=== PATIENT | male | born 1980 | race Caucasian/White ===

== ENCOUNTER 2023-11-08 16:57 | Inpatient (IN) | payer BC, SELFPAY ==
[2023-11-08] VITALS (38 sets, daily range): BP systolic 123–176; BP diastolic 72–102; PULSE 86–114; RESP 16–33; TEMP 36.8–37.3; O2SAT 87–99; BMI 42.2; BMI 43.3
--- NOTE | 2023-11-08 17:05 | ECG_ITS ---
The [facility] Test Date: 2023-11-08 Pat Name: Steffen Zelaya Department: Room: - Gender: Male E Learning Developer: : 1980 Requested By: MARYSOL RONQUILLO Order Number: [id number] Reading MD: BALJIT PENA Measurements Intervals [place] Rate: 101 P: 55 W[place]: 174 QRS: 45 QRSD: 100 T: 30 QT: 342 QTc: 400 Interpretive Statements 1120 Sinus tachycardia 9140 abnormal rhythm ECG No previous ECG available for comparison Electronically Signed On 11-09-2023 6:48:54 EST by BALJIT PENA
--- NOTE | 2023-11-08 17:12 | ED_ITS ---
Documented by User: MARIO Roberts 11/08/23 21:59 HPI - Nausea/Vomiting/Diarrhea General Chief complaint: Nausea/Vomiting/Diarrhea Stated complaint: Abdominal Pain Time Seen by Provider: 11/08/23 16:58 Source: patient Mode of arrival: walk-in Limitations: no limitations History of Present Illness HPI Narrative: Patient is a 43-year-old male who presents to the emergency department for the evaluation of epigastric pain that began this morning. He states he took Pepto- Bismol and antacids prior to arrival without improvement. He denies fevers, chills. He reports 2 episodes of emesis and minimal diarrhea. No urinary symptoms. No previous abdominal surgeries. He denies any history of the symptoms previously. He denies any flank or back pain. Related Data Home Medications Medication Instructions Recorded Confirmed amlodipine 10 mg tablet 10 mg PO DAILY 11/08/23 11/08/23 lisinopril 20 1 tab PO DAILY 11/08/23 11/08/23 mg-hydrochlorothiazide 12.5 mg tablet Allergies Allergy/AdvReac Type Severity Reaction Status Date / Time latex Allergy Intermediate Swelling Verified 11/08/23 17:04 of Lip/Tongue/Throat Penicillins Allergy Intermediate Verified 11/08/23 17:04 Review of Systems ROS Constitutional Denies: fever or chills Ears, nose, mouth, and throat Denies: throat pain or nasal congestion Cardiovascular Denies: chest pain Respiratory Denies: shortness of breath or cough Gastrointestinal Reports: abdominal pain, nausea, vomiting and diarrhea Genitourinary Denies: painful urination Musculoskeletal Denies: back pain or neck pain Integumentary/Breast Denies: rash Neurological Denies: headache [facility] Medical History (Updated 11/09/23 @ 01:29 by Katerine Bhat, FORREST) Sleep apnea treated with continuous positive airway pressure (CPAP) ?G47.30 - Sleep apnea, unspecified (ICD-10) Hydronephrosis ?N13.30 - Unspecified hydronephrosis (ICD-10) Hypertension ?I10 - Essential (primary) hypertension (ICD-10) Surgical History (Updated 11/08/23 @ 22:56 by Katerine Bhat RN) [place] teeth extracted ?K08.409 - Partial loss of teeth, unspecified cause, unspecified class (ICD- 10) H/O bursectomy ?Z98.890 - Other specified postprocedural states (ICD-10) Family History (Updated 11/08/23 @ 22:56 by Katerine Bhat, RN) Other Family history of cancer Family history of diabetes mellitus Family history of hypertension Social History (Updated 11/08/23 @ 22:58 by Katerine Bhat, RN) Within the past year, how often did you have a drink containing alcohol: 2-3 times a week Within the past year, how many standard drinks containing alcohol did you have on a typical day: 7 to 9 Within the past year, how often did you have six or more drinks on one occasion: weekly Total score: 9 Score interpretation: A score of 4 or more indicates drinking is likely to affect patient's safety. Smoking status: Never smoker Non-prescribed substance use: denies use Highest level of school completed/degree received: Associate degree: academic program Exam Narrative Exam Narrative: Gen.: Awake, alert, in no distress Head: Normocephalic, atraumatic ENT: Moist mucous membranes Respiratory: No respiratory distress, lungs clear bilaterally Cardio: Regular rate and rhythm Gastrointestinal: Abdomen is soft, Obese and tender to palpation in the epigastrium with no guarding or rebound Extremities: Moves extremities equally, no injuries noted Psych: Normal mood and affect Neuro: No focal neuro deficit Skin: Warm, dry, intact Constitutional Vital Signs, click to edit/add: Last Vital Signs Temp 98.0 F 11/09/23 04:45 Pulse 79 11/09/23 05:59 Resp 16 11/09/23 04:45 BP 155/89 H 11/09/23 04:45 Pulse Ox 96 11/09/23 05:59 O2 Del Method Nasal Cannula 11/09/23 04:45 O2 Flow Rate 2 11/09/23 04:45 Course Vital Signs Vital signs: Vital Signs Temperature 99.1 F 11/08/23 17:00 Pulse Rate 114 H 11/08/23 17:00 Respiratory Rate 20 11/08/23 17:00 Blood Pressure 159/93 H 11/08/23 17:00 Pulse Oximetry 97 11/08/23 17:00 Oxygen Delivery Method Room Air 11/08/23 17:00 Temperature 98.0 F 11/09/23 04:45 Pulse Rate 79 11/09/23 05:59 Respiratory Rate 16 11/09/23 04:45 Blood Pressure 155/89 H 11/09/23 04:45 Pulse Oximetry 96 11/09/23 05:59 Oxygen Delivery Method Nasal Cannula 11/09/23 04:45 Oxygen Delivery Flow Rate 2 11/09/23 04:45 MDM - Nausea/Vomiting/Diarrhea MDM Narrative Medical decision making narrative: I saw and examined the patient. he has epigastric and upper abdominal pain since this morning, two episodes of vomiting. No nausea on arrival. No relief at home with antacids. His WBC 14k. US GB negative for gallstones or cholecystitis. Blood testing otherwise normal. No improvement in pain with IV Protonix and GI cocktail. I ordered IV Dilaudid and CT abd/pelvis with IV contrast. Patient signed out to Dr Jacome at 7pm shift change. MARIO Giron made aware of plan. - DO Connor Patient was medicated, ultrasound and labs are unremarkable with the exception of mild leukocytosis. Patient reexamined by attending physician and additional pain medications and CT with IV contrast were ordered by attending physician. CT was read by the radiologist showing that the patient has a moderate small bowel obstruction with 2 transition points as well as moderate left hydroureter with suspicion for a ureteral stricture at the distal left ureter. I discussed this with the patient and his family at bedside. I answered their questions. Patient then states that he has had previous surgery on his ureter is a 6-year-old with appendectomy and exploratory laparotomy performed at that time. He states that he had it checked a few years ago at this facility but did not see a urologist and previous records show that the patient only had a right upper quadrant ultrasound in 2020. He has not had any evaluation of the left ureter at this facility. I made him aware that he did not have any hydroureter on the right side because he did not have the procedure on that side. I discussed the case with Dr. Forbes for urology and she will evaluate the patient tomorrow, likely an incidental finding as he has normal creatinine and urinary function. I discussed the case with Dr. Rodríguez For general surgery who requested an abdominal x-ray to be performed in the morning, NG tube placed in the emergency department. Patient will be admitted to the hospitalist service for evaluation. Stable at time of admission. Medical Records Attestation: I reviewed the patient's medical records. Lab Data Attestation: I reviewed the patient's lab results. Labs: Lab Results 11/08/23 11/08/23 Range/Units 17:10 17:16 WBC 14.3 H (4.0-11.0) 10^3/uL RBC 5.16 (4.70-6.10) 10^6/uL Hgb 15.1 (14.0-18.0) g/dL Hct 44.7 (42.0-54.0) % MCV 86.6 (80.0-94.0) fL MCH 29.3 (25.9-34.0) pg MCHC 33.8 (29.9-35.2) g/dL RDW 11.6 (11.0-15.0) % Plt Count 339 (150-450) 10^3/uL MPV 9.3 L (9.5-13.5) fL Neut % (Auto) 86.6 H (43.0-75.0) % Lymph % (Auto) 6.0 L (20.5-60.0) % [place] % (Auto) 6.3 (1.7-12.0) % Eos % (Auto) 0.6 L (0.9-7.0) % Baso % (Auto) 0.3 (0.2-2.0) % Neut # (Auto) 12.4 H (1.4-6.5) 10^3/uL Lymph # (Auto) 0.9 L (1.2-3.8) 10^3/uL [place] # (Auto) 0.9 H (0.3-0.8) 10^3/uL Eos # (Auto) 0.1 (0.0-0.7) 10^3/uL Baso # (Auto) 0.0 (0.0-0.1) 10^3/uL Abs Immat Gran (auto) 0.03 (0.00-0.03) 10^3/uL Imm/Tot Granulo (auto) 0.2 (0.0-0.5) % Sodium 137 (136-145) mmol/L Potassium 3.7 (3.5-5.1) mmol/L Chloride 100 (98-107) mmol/L Carbon Dioxide 26.6 (21.0-32.0) mmol/L Anion Gap 14.1 BUN 15.0 (7.0-18.0) mg/dL Creatinine 0.94 (0.70-1.30) mg/dL Est GFR ( Amer) >60 (>=60) Est GFR (Non-Af Amer) >60 (>=60) BUN/Creatinine Ratio 16.0 Glucose 156 H (74-106) mg/dL Lactate 1.7 (0.4-2.0) mmol/L Calcium 8.9 (8.5-10.1) mg/dL Total Bilirubin 0.8 (0.2-1.0) mg/dL AST 27 (15-37) U/L ALT 77 H (16-63) U/L Alkaline Phosphatase 67 (46-116) U/L Troponin I High Sens 5.5 (4.0-76.1) pg/mL Total Protein 7.7 (6.4-8.2) g/dL Albumin 3.9 (3.4-5.0) g/dL Globulin 3.8 g/dL Albumin/Globulin Ratio 1.0 Lipase 26.0 (16.0-77.0) U/L Urine Color Yellow (YELLOW) Urine Clarity Clear (CLEAR) Urine pH 6.0 (5.0-9.0) Ur Specific [place] 1.020 (1.005-1.025) Urine Protein Trace (NEG/TRACE) mg/dL Urine Glucose (UA) Negative (NEGATIVE) mg/dL Urine Ketones Negative (NEGATIVE) mg/dL Urine Occult Blood Negative (NEGATIVE) Urine Nitrite Negative (NEGATIVE) Urine Bilirubin Negative (NEGATIVE) Urine Urobilinogen 0.2 (0.2-1.0) EU/dL Ur Leukocyte Esterase Negative (NEGATIVE) Imaging Data US - abdomen: Attestation: I have reviewed the pertinent imaging results. Radiologist's impression: ITS Impressions Upper Quadrant Ultrasound 11/08/23 17:34 IMPRESSION: Hepatomegaly and hepatic steatosis. Electronically authenticated by: CELESTINA ESPINO Date: 11/08/2023 18:46 Abdomen/Pelvis CT 11/08/23 19:00 IMPRESSION: 1. Multiple dilated small bowel loops with 2 possible transition points as described above. Findings are consistent with a moderate small bowel obstruction. 2. Fatty liver and hepatomegaly. 3. Moderate to severe left hydroureteronephrosis. The left ureter tapers distally and appears to insert abnormally high in the urinary bladder which may be due to previous surgery. Findings are suspicious for a distal ureteral stricture. Consider urology consultation. Electronically authenticated by: HAMILTON LÓPEZ Date: 11/08/2023 21:33 Abdomen X-Ray 11/08/23 21:46 IMPRESSION: Nasogastric tube is seen in place with its distal tip projecting over the expected location of the proximal gastric body, and side port seen at or near the expected location of the gastroesophageal junction. Advancing the nasogastric tube at least 8 cm is suggested. Electronically authenticated by: SONG SORENSEN Date: 11/08/2023 22:53 Procedure: US right upper quadrant EXAM: US right upper quadrant HISTORY: epigastric pain COMPARISON: None. TECHNIQUE: Limited ultrasound of the liver, utilizing grayscale and color Doppler imaging. FINDINGS: Right pleural space: Clear Liver: There is increased echogenicity of the liver. The liver is enlarged. Gallbladder: No gallbladder wall thickening or cholelithiasis. Intrahepatic ducts: Normal caliber. Extra hepatic duct measures up to 5 mm Peritoneal space: No ascites. Right kidney: Unremarkable IMPRESSION: Hepatomegaly and hepatic steatosis. Electronically authenticated by: CELESTINA ESPINO Date: 11/08/2023 18:46 ECG Data Attestation: I personally reviewed and interpreted this ECG as follows: (Sinus tachycardia at a rate of 101, no acute ST elevation or ectopy. EKG reviewed by attending physician) ECG interpretation date: 11/08/23 Discharge Plan Discharge Chief Complaint: Nausea/Vomiting/Diarrhea Clinical Impression: Small bowel obstruction, Nausea & vomiting, Abdominal pain, Hydroureter on left Patient Disposition: Admitted as Observation Time of Disposition Decision: 21:56 Condition: Good Discharge Date/Time: 11/08/23 22:39 Documented by User: Ralph Horvath 11/09/23 07:32 HPI - Nausea/Vomiting/Diarrhea General Chief complaint: Nausea/Vomiting/Diarrhea Stated complaint: Abdominal Pain Time Seen by Provider: 11/08/23 16:58 Related Data Home Medications Medication Instructions Recorded Confirmed amlodipine 10 mg tablet 10 mg PO DAILY 11/08/23 11/08/23 lisinopril 20 1 tab PO DAILY 11/08/23 11/08/23 mg-hydrochlorothiazide 12.5 mg tablet Allergies Allergy/AdvReac Type Severity Reaction Status Date / Time latex Allergy Intermediate Swelling Verified 11/08/23 17:04 of Lip/Tongue/Throat Penicillins Allergy Intermediate Verified 11/08/23 17:04 [facility] Medical History (Updated 11/09/23 @ 01:29 by Ktaerine Bhat, FORREST) Sleep apnea treated with continuous positive airway pressure (CPAP) ?G47.30 - Sleep apnea, unspecified (ICD-10) Hydronephrosis ?N13.30 - Unspecified hydronephrosis (ICD-10) Hypertension ?I10 - Essential (primary) hypertension (ICD-10) Surgical History (Updated 11/08/23 @ 22:56 by Katerine Bhat, FORREST) [place] teeth extracted ?K08.409 - Partial loss of teeth, unspecified cause, unspecified class (ICD- 10) H/O bursectomy ?Z98.890 - Other specified postprocedural states (ICD-10) Family History (Updated 11/08/23 @ 22:56 by Katerine Bhat, FORREST) Other Family history of cancer Family history of diabetes mellitus Family history of hypertension Social History (Updated 11/08/23 @ 22:58 by Katerine Bhat, FORREST) Within the past year, how often did you have a drink containing alcohol: 2-3 times a week Within the past year, how many standard drinks containing alcohol did you have on a typical day: 7 to 9 Within the past year, how often did you have six or more drinks on one occasion: weekly Total score: 9 Score interpretation: A score of 4 or more indicates drinking is likely to affect patient's safety. Smoking status: Never smoker Non-prescribed substance use: denies use Highest level of school completed/degree received: Associate degree: academic program Exam Constitutional Vital Signs, click to edit/add: Last Vital Signs Temp 98.0 F 11/09/23 04:45 Pulse 79 11/09/23 05:59 Resp 16 11/09/23 04:45 BP 155/89 H 11/09/23 04:45 Pulse Ox 96 11/09/23 05:59 O2 Del Method Nasal Cannula 11/09/23 04:45 O2 Flow Rate 2 11/09/23 04:45 Course Vital Signs Vital signs: Vital Signs Temperature 99.1 F 11/08/23 17:00 Pulse Rate 114 H 11/08/23 17:00 Respiratory Rate 20 11/08/23 17:00 Blood Pressure 159/93 H 11/08/23 17:00 Pulse Oximetry 97 11/08/23 17:00 Oxygen Delivery Method Room Air 11/08/23 17:00 Temperature 98.0 F 11/09/23 04:45 Pulse Rate 79 11/09/23 05:59 Respiratory Rate 16 11/09/23 04:45 Blood Pressure 155/89 H 11/09/23 04:45 Pulse Oximetry 96 11/09/23 05:59 Oxygen Delivery Method Nasal Cannula 11/09/23 04:45 Oxygen Delivery Flow Rate 2 11/09/23 04:45 MDM - Nausea/Vomiting/Diarrhea MDM Narrative Medical decision making narrative: I saw and examined the patient. he has epigastric and upper abdominal pain since this morning, two episodes of vomiting. No nausea on arrival. No relief at home with antacids. His WBC 14k. US GB negative for gallstones or cholecystitis. Blood testing otherwise normal. No improvement in pain with IV Protonix and GI cocktial. I ordered IV Dilaudid and CT abd/pelvis with IV contrast. Patient signed out to Dr Jacome at 7pm shift change. MARIO Giron made aware of plan. - DO Connor Lab Data Labs: Lab Results 11/08/23 11/08/23 Range/Units 17:10 17:16 WBC 14.3 H (4.0-11.0) 10^3/uL RBC 5.16 (4.70-6.10) 10^6/uL Hgb 15.1 (14.0-18.0) g/dL Hct 44.7 (42.0-54.0) % MCV 86.6 (80.0-94.0) fL MCH 29.3 (25.9-34.0) pg MCHC 33.8 (29.9-35.2) g/dL RDW 11.6 (11.0-15.0) % Plt Count 339 (150-450) 10^3/uL MPV 9.3 L (9.5-13.5) fL Neut % (Auto) 86.6 H (43.0-75.0) % Lymph % (Auto) 6.0 L (20.5-60.0) % [place] % (Auto) 6.3 (1.7-12.0) % Eos % (Auto) 0.6 L (0.9-7.0) % Baso % (Auto) 0.3 (0.2-2.0) % Neut # (Auto) 12.4 H (1.4-6.5) 10^3/uL Lymph # (Auto) 0.9 L (1.2-3.8) 10^3/uL [place] # (Auto) 0.9 H (0.3-0.8) 10^3/uL Eos # (Auto) 0.1 (0.0-0.7) 10^3/uL Baso # (Auto) 0.0 (0.0-0.1) 10^3/uL Abs Immat Gran (auto) 0.03 (0.00-0.03) 10^3/uL Imm/Tot Granulo (auto) 0.2 (0.0-0.5) % Sodium 137 (136-145) mmol/L Potassium 3.7 (3.5-5.1) mmol/L Chloride 100 (98-107) mmol/L Carbon Dioxide 26.6 (21.0-32.0) mmol/L Anion Gap 14.1 BUN 15.0 (7.0-18.0) mg/dL Creatinine 0.94 (0.70-1.30) mg/dL Est GFR ( Amer) >60 (>=60) Est GFR (Non-Af Amer) >60 (>=60) BUN/Creatinine Ratio 16.0 Glucose 156 H (74-106) mg/dL Lactate 1.7 (0.4-2.0) mmol/L Calcium 8.9 (8.5-10.1) mg/dL Total Bilirubin 0.8 (0.2-1.0) mg/dL AST 27 (15-37) U/L ALT 77 H (16-63) U/L Alkaline Phosphatase 67 (46-116) U/L Troponin I High Sens 5.5 (4.0-76.1) pg/mL Total Protein 7.7 (6.4-8.2) g/dL Albumin 3.9 (3.4-5.0) g/dL Globulin 3.8 g/dL Albumin/Globulin Ratio 1.0 Lipase 26.0 (16.0-77.0) U/L Urine Color Yellow (YELLOW) Urine Clarity Clear (CLEAR) Urine pH 6.0 (5.0-9.0) Ur Specific [place] 1.020 (1.005-1.025) Urine Protein Trace (NEG/TRACE) mg/dL Urine Glucose (UA) Negative (NEGATIVE) mg/dL Urine Ketones Negative (NEGATIVE) mg/dL Urine Occult Blood Negative (NEGATIVE) Urine Nitrite Negative (NEGATIVE) Urine Bilirubin Negative (NEGATIVE) Urine Urobilinogen 0.2 (0.2-1.0) EU/dL Ur Leukocyte Esterase Negative (NEGATIVE) Imaging Data US - abdomen: Radiologist's impression: ITS Impressions Upper Quadrant Ultrasound 11/08/23 17:34 IMPRESSION: Hepatomegaly and hepatic steatosis. Electronically authenticated by: CELESTINA ESPINO Date: 11/08/2023 18:46 Abdomen/Pelvis CT 11/08/23 19:00 IMPRESSION: 1. Multiple dilated small bowel loops with 2 possible transition points as described above. Findings are consistent with a moderate small bowel obstruction. 2. Fatty liver and hepatomegaly. 3. Moderate to severe left hydroureteronephrosis. The left ureter tapers distally and appears to insert abnormally high in the urinary bladder which may be due to previous surgery. Findings are suspicious for a distal ureteral stricture. Consider urology consultation. Electronically authenticated by: HAMILTON LÓPEZ Date: 11/08/2023 21:33 Abdomen X-Ray 11/08/23 21:46 IMPRESSION: Nasogastric tube is seen in place with its distal tip projecting over the expected location of the proximal gastric body, and side port seen at or near the expected location of the gastroesophageal junction. Advancing the nasogastric tube at least 8 cm is suggested. Electronically authenticated by: SONG SORENSEN Date: 11/08/2023 22:53 Discharge Plan Discharge Chief Complaint: Nausea/Vomiting/Diarrhea Clinical Impression: Small bowel obstruction, Nausea & vomiting, Abdominal pain, Hydroureter on left Patient Disposition: Admitted as Observation Time of Disposition Decision: 21:56 Condition: Good Discharge Date/Time: 11/08/23 22:39
[2023-11-08 17:29] LABS: Basophils Percent Auto 0.3 % (0.2-2.0); Eosinophils Absolute Auto 0.1 10^3/uL (0.0-0.7); Eosinophils Percent Auto 0.6 % (0.9-7.0); Hematocrit 44.7 % (42.0-54.0); Hemoglobin 15.1 g/dL (14.0-18.0); Immature Granulocytes Abs Auto 0.03 10^3/uL (0.00-0.03); Immature Granulocytes Pct Auto 0.2 % (0.0-0.5); Lymphocytes Absolute Auto 0.9 10^3/uL (1.2-3.8); Mean Corpuscular HGB Conc 33.8 g/dL (29.9-35.2); Mean Corpuscular Hemoglobin 29.3 pg (25.9-34.0); Mean Corpuscular Volume 86.6 fL (80.0-94.0); Mean Platelet Volume 9.3 fL (9.5-13.5); Monocytes Absolute Auto 0.9 10^3/uL (0.3-0.8); Monocytes Percent Auto 6.3 % (1.7-12.0); Neutrophils Absolute Auto 12.4 10^3/uL (1.4-6.5); Neutrophils Percent Auto 86.6 % (43.0-75.0); Platelet Count 339 10^3/uL (150-450); Red Blood Count 5.16 10^6/uL (4.70-6.10); Red Cell Distribution Width 11.6 % (11.0-15.0); White Blood Count 14.3 10^3/uL (4.0-11.0)
--- NOTE | 2023-11-08 17:34 | US_ITS ---
The [place] [id number] Patient Name: MALENA MENDOZA MRN: [id number] date: 1980 Sex: M Assigned Patient Location: ER Current Patient Location: ER Accession/Order Number: [id number] Exam Date: 11/08/2023 17:35 Report Date: 11/08/2023 18:46 At the request of: THIERNO HARPER Procedure: US right upper quadrant EXAM: US right upper quadrant HISTORY: epigastric pain COMPARISON: None. TECHNIQUE: Limited ultrasound of the liver, utilizing grayscale and color Doppler imaging. FINDINGS: Right pleural space: Clear Liver: There is increased echogenicity of the liver. The liver is enlarged. Gallbladder: No gallbladder wall thickening or cholelithiasis. Intrahepatic ducts: Normal caliber. Extra hepatic duct measures up to 5 mm Peritoneal space: No ascites. Right kidney: Unremarkable US/US right upper quadrant IMPRESSION: Hepatomegaly and hepatic steatosis. Electronically authenticated by: CELESTINA ESPINO Date: 11/08/2023 18:46
[2023-11-08 17:36] LABS: Bilirubin Urine NEGATIVE (NEGATIVE); Blood Urine NEGATIVE (NEGATIVE); Clarity Urine CLEAR (CLEAR); Color Urine YELLOW (YELLOW); Glucose Urine UA NEGATIVE (NEGATIVE); Ketones Urine NEGATIVE (NEGATIVE); Leukocyte Esterase Urine NEGATIVE (NEGATIVE); Nitrite Urine NEGATIVE (NEGATIVE); Protein Urine TRACE mg/dL (NEG/TRACE); Urobilinogen Urine 0.2 EU/dL (0.2-1.0)
[2023-11-08] MEDS: 0.9 % SODIUM CHLORIDE 1,000 ML 999 ML IV (17:38)
[2023-11-08] MEDS: PANTOPRAZOLE SODIUM 40 MG VIAL IV (17:38)
[2023-11-08] MEDS: ONDANSETRON PF 4 MG/2 ML VIAL IV (17:39)
[2023-11-08 17:40] LABS: Lactate/Lactic Acid 1.7 mmol/L (0.4-2.0)
[2023-11-08] MEDS: lidocaine HCL 15 ML, MAG HYDROX/ALUMINUM HYD/SIMETH 30 ML, HYOSCYAMINE SULFATE 0.25 MG PO (17:40)
[2023-11-08 17:42] LABS: Urine Microscopic Indicated NO
[2023-11-08 17:46] LABS: Alanine Aminotransferase 77 U/L (16-63); Albumin Level 3.9 g/dL (3.4-5.0); Alkaline Phosphatase 67 U/L (46-116); Anion Gap 14.1; Aspartate Amino Transferase 27 U/L (15-37); Bilirubin Total 0.8 mg/dL (0.2-1.0); Calcium 8.9 mg/dL (8.5-10.1); Carbon Dioxide 26.6 mmol/L (21.0-32.0); Chloride 100 mmol/L (98-107); Estimated GFR (African America >60 (>=60); Estimated GFR (Non-African Ame >60 (>=60); Globulin 3.8 g/dL; Glucose 156 mg/dL (74-106); Potassium 3.7 mmol/L (3.5-5.1); Sodium 137 mmol/L (136-145); Total Protein 7.7 g/dL (6.4-8.2); Troponin I High Sensitivity 5.5 pg/mL (4.0-76.1)
--- NOTE | 2023-11-08 19:00 | CT_ITS ---
The [address] [address] Patient Name: MALENA MENDOZA MRN: [id number] date: 1980 Sex: M Assigned Patient Location: ER Current Patient Location: Accession/Order Number: [id number] Exam Date: 11/08/2023 19:45 Report Date: 11/08/2023 21:33 At the request of: BEA NICHOLS Procedure: CT abdomen pelvis w con CT ABDOMEN AND PELVIS WITH CONTRAST: INDICATION: upper abdominal pain. COMPARISON: Right upper quadrant ultrasound 11/08/2023. TECHNIQUE: Helical CT images of the abdomen and pelvis were obtained after the administration of intravenous contrast. Dose reduction techniques were achieved by using automated exposure control and/or adjustment of mA and/or kV according to patient size and/or use of iterative reconstruction technique. FINDINGS: LOWER CHEST: Normal. LIVER: Mild fatty infiltration and the liver is mildly enlarged at 20 cm in length. GALLBLADDER AND BILIARY SYSTEM: Normal. SPLEEN: Normal. PANCREAS: Normal. ADRENAL GLANDS: Normal. KIDNEYS AND URETERS: Right kidney appears normal. There is moderate to severe left hydronephrosis and hydroureter. The ureter is markedly dilated distally and it tapers near the urinary bladder. The distal left ureter is not well visualized. It appears to possibly inserted in an abnormal position in the left urinary bladder anterior to the normal location of the ureterovesical junction. There are adjacent surgical clips and this may be due to previous ureterectomy. VASCULATURE: Normal. RETROPERITONEUM AND LYMPH NODES: Normal, with no lymphadenopathy. GASTROINTESTINAL TRACT/MESENTERY: There are multiple dilated loops of small bowel with air-fluid levels. Distal small bowel is underdistended. There is a transition point in the left paracentral mid abdomen on image 93 series 3 although the small bowel is also slightly dilated distal to this point. Another possible transition point is seen within the right upper quadrant on image 68. There is trace ascites. The appendix is not visualized. BLADDER: Normal. REPRODUCTIVE SYSTEM: Normal prostate. BODY WALL: There is a small fat-containing umbilical hernia. BONES: No acute abnormality. CT/CT abdomen pelvis w con IMPRESSION: 1. Multiple dilated small bowel loops with 2 possible transition points as described above. Findings are consistent with a moderate small bowel obstruction. 2. Fatty liver and hepatomegaly. 3. Moderate to severe left hydroureteronephrosis. The left ureter tapers distally and appears to insert abnormally high in the urinary bladder which may be due to previous surgery. Findings are suspicious for a distal ureteral stricture. Consider urology consultation. Electronically authenticated by: HAMILTON LÓPEZ Date: 11/08/2023 21:33
[2023-11-08] MEDS: HYDROMORPHONE HCL 1 MG/ML CARTRIDGE IV (19:27)
--- NOTE | 2023-11-08 21:46 | XR_ITS ---
The [address] [address] Patient Name: MALENA MENDOZA MRN: [id number] date: 1980 Sex: M Assigned Patient Location: ED.MAIN Current Patient Location: [place] Accession/Order Number: [id number] Exam Date: 11/08/2023 22:20 Report Date: 11/08/2023 22:53 At the request of: THIERNO HARPER Procedure: XR abdomen 1V EXAM: XR abdomen 1V HISTORY: NG tube placement COMPARISON: None. TECHNIQUE: Single portable supine view of the left upper abdomen FINDINGS: Nasogastric tube is seen in place with its distal tip projecting over the expected location of the proximal gastric body, and side port seen at or near the expected location of the gastroesophageal junction. Advancing the nasogastric tube at least 8 cm is suggested. XR/XR abdomen 1V IMPRESSION: Nasogastric tube is seen in place with its distal tip projecting over the expected location of the proximal gastric body, and side port seen at or near the expected location of the gastroesophageal junction. Advancing the nasogastric tube at least 8 cm is suggested. Electronically authenticated by: SONG SORENSEN Date: 11/08/2023 22:53
[2023-11-08] MEDS: HYDROMORPHONE HCL 0.5 MG/0.5 ML SYRINGE IV (21:48)
[2023-11-08] MEDS: 0.9 % SODIUM CHLORIDE 1,000 ML 100 ML IV (23:33)
[2023-11-08] MEDS: MORPHINE SULFATE 2 MG/ML SYRINGE IV (23:34)
[2023-11-09] VITALS (20 sets, daily range): BP systolic 150–155; BP diastolic 74–89; PULSE 70–87; RESP 12–18; TEMP 36.7–37.1; O2SAT 87–96
[2023-11-09] MEDS: MORPHINE SULFATE 2 MG/ML SYRINGE IV ×4 (02:58→14:39)
[2023-11-09 05:13] LABS: Basophils Percent Auto 0.1 % (0.2-2.0); Eosinophils Percent Auto 0.2 % (0.9-7.0); Hematocrit 41.7 % (42.0-54.0); Hemoglobin 13.9 g/dL (14.0-18.0); Immature Granulocytes Abs Auto 0.03 10^3/uL (0.00-0.03); Immature Granulocytes Pct Auto 0.3 % (0.0-0.5); Lymphocytes Absolute Auto 1.2 10^3/uL (1.2-3.8); Lymphocytes Percent Auto 12.2 % (20.5-60.0); Mean Corpuscular HGB Conc 33.3 g/dL (29.9-35.2); Mean Corpuscular Hemoglobin 29.6 pg (25.9-34.0); Mean Corpuscular Volume 88.9 fL (80.0-94.0); Mean Platelet Volume 9.2 fL (9.5-13.5); Monocytes Percent Auto 9.4 % (1.7-12.0); Neutrophils Absolute Auto 7.9 10^3/uL (1.4-6.5); Neutrophils Percent Auto 77.8 % (43.0-75.0); Platelet Count 280 10^3/uL (150-450); Red Blood Count 4.69 10^6/uL (4.70-6.10); Red Cell Distribution Width 11.8 % (11.0-15.0); White Blood Count 10.2 10^3/uL (4.0-11.0)
[2023-11-09 05:33] LABS: Anion Gap 11.9; BUN Creatinine Ratio 13.3; Calcium 8.3 mg/dL (8.5-10.1); Carbon Dioxide 28.8 mmol/L (21.0-32.0); Chloride 102 mmol/L (98-107); Estimated GFR (African America >60 (>=60); Estimated GFR (Non-African Ame >60 (>=60); Glucose 137 mg/dL (74-106); Potassium 3.7 mmol/L (3.5-5.1); Sodium 139 mmol/L (136-145)
--- NOTE | 2023-11-09 07:00 | FL_ITS ---
The [address] [address] Patient Name: MALENA MENDOZA MRN: [id number] date: 1980 Sex: M Assigned Patient Location: MS Current Patient Location: MS Accession/Order Number: [id number] Exam Date: 11/09/2023 09:30 Report Date: 11/09/2023 12:56 At the request of: YESY MONTEIRO Procedure: FL small bowel EXAMINATION: FL small bowel HISTORY: SBO COMPARISON: 11/09/2023 No broom handle dipper image was obtained. One 1, 2 and 3 hour images were obtained. TECHNIQUE: Small bowel series was performed in the usual manner. No broom handle dipper abdominal radiograph was performed. Standard level fluoroscopic mode of operation utilized. FINDINGS: 1 and 2 hour images demonstrate enteric tube in the stomach. Contrast distention of the stomach and proximal small bowel loops are observed at one and 2 hours with distention of proximal small bowel loops up to 5.7 cm. Iodinated contrast is identified in the urinary bladder and two-hour image Three-hour image demonstrates partial decompression of the stomach and proximal small bowel loops with contrast is identified in the colon.r persistent dilation of proximal small bowel loops is observed measuring up to 5.3 cm FL/FL small bowel IMPRESSION: 1 and 2 hour images demonstrate high-grade proximal small bowel obstruction Three-hour image demonstrates partial decompression of the proximal small bowel with differential dilation between the proximal and distal small bowel but passage of contrast into the distal small bowel loops and colon Electronically authenticated by: DESEAN SHANNON Date: 11/09/2023 12:56
--- NOTE | 2023-11-09 07:00 | XR_ITS ---
The [address] [address] Patient Name: MALENA MENDOZA MRN: [id number] date: 1980 Sex: M Assigned Patient Location: MS Current Patient Location: Accession/Order Number: [id number] Exam Date: 11/09/2023 06:15 Report Date: 11/09/2023 06:39 At the request of: THIERNO HARPER Procedure: XR acute abdomen series EXAM: XR acute abdomen series HISTORY: Small bowel obstruction. COMPARISON: CT abdomen pelvis, 11/08/2023. TECHNIQUE: Frontal chest x-ray with supine and upright abdominal x-rays. FINDINGS: The heart, mediastinum and pulmonary vascularity are within normal limits. The lungs and pleural spaces are clear. There is mild asymmetric elevation of the right diaphragm. High-grade small bowel obstruction is again noted with gas-filled distended small bowel loops measuring just over 6 cm in diameter in the left lower quadrant. These appear increased from yesterday's exam. There is a normal amount of gas in the colon. There is IV contrast in the dilated left renal collecting system and ureter. NG tube side-port is near the GE junction with the tip in the proximal gastric body. XR/XR acute abdomen series IMPRESSION: 1. Nonacute chest. 2. High-grade partial small bowel obstruction appears increased from yesterday's exam. No gross free air. 3. Moderate left hydroureteronephrosis, unchanged. 4. NG tube side-port below the GE junction. This should be advanced a minimum of 3 cm. Electronically authenticated by: DANIKA LUNSFORD Date: 11/09/2023 06:39
[2023-11-09] MEDS: PANTOPRAZOLE SODIUM 40 MG VIAL IV (09:05)
--- NOTE | 2023-11-09 11:02 | CM.NOTE ---
Rounds made with Dr. Azul, general surgeon to see pt today for further recommendations. No discharge today.
--- NOTE | 2023-11-09 11:31 | P.HP_ITS ---
H&P: HPI History of Present Illness Chief complaint: Abdominal Pain, Small Bowel Obstruction Narrative: 43 y Male presents with severe generalized abdominal pain, nausea and vomiting, abdominal distention for one day. He reports acute onset abdominal pain followed by bilious vomiting with some improvement but then his pain returned later in the evening for which he decided to come to Emergency Department for further evaluation. Workup in Emergency Room revealed small bowel obstruction for which an NG tube was inserted with intermittent suction for bowel decompression and symptomatic relief. He was also noted to have left-sided hydroureteronephrosis that is chronic in nature from his previous surgery for ureteral stricture When he was [age] years old. He denies any urinary symptoms including dysuria, urgency, hesitancy or polyuria. When I evaluated him, he was reporting nausea, abdominal distention and pain. His NG tube was clamped after giving him contrast for a small bowel follow- through series. Patient reports he's been passing gas overnight. He has no prior history of small bowel obstruction. 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 His last bowel movement was two days ago. Gen. surgery is on consult and will see the patient later today. Review of Systems ROS Status of ROS 10 or more systems reviewed and unremark able except as noted in history and below [facility] Medical History (Updated 11/09/23 @ 11:44 by Shaikh Latha MD) Congenital hydroureteronephrosis ?Q62.0 - Congenital hydronephrosis (ICD-10) Sleep apnea treated with continuous positive airway pressure (CPAP) ?G47.30 - Sleep apnea, unspecified (ICD-10) Hydronephrosis ?N13.30 - Unspecified hydronephrosis (ICD-10) Hypertension ?I10 - Essential (primary) hypertension (ICD-10) Surgical History [place] teeth extracted ?K08.409 - Partial loss of teeth, unspecified cause, unspecified class (ICD- 10) H/O bursectomy ?Z98.890 - Other specified postprocedural states (ICD-10) Family History Other Family history of cancer Family history of diabetes mellitus Family history of hypertension Social History Within the past year, how often did you have a drink containing alcohol: 2-3 times a week Within the past year, how many standard drinks containing alcohol did you have on a typical day: 7 to 9 Within the past year, how often did you have six or more drinks on one occasion: weekly Total score: 9 Score interpretation: A score of 4 or more indicates drinking is likely to affect patient's safety. Smoking status: Never smoker Non-prescribed substance use: denies use Highest level of school completed/degree received: Associate degree: academic program Meds Home Medications and Allergies Home Medications Medication Instructions Recorded Confirmed Type amlodipine 10 mg tablet 10 mg PO DAILY 11/08/23 11/08/23 History lisinopril 20 1 tab PO DAILY 11/08/23 11/08/23 History mg-hydrochlorothiazide 12.5 mg tablet Allergies Allergy/AdvReac Type Severity Reaction Status Date / Time latex Allergy Intermediate Swelling Verified 11/08/23 17:04 of Lip/Tongue/Throat Penicillins Allergy Intermediate Verified 11/08/23 17:04 Exam Constitutional Vital Signs, click to edit/add: Last Vital Signs Temp 98.0 F 11/09/23 04:45 Pulse 84 11/09/23 10:00 Resp 16 11/09/23 04:45 BP 155/89 H 11/09/23 04:45 Pulse Ox 92 L 11/09/23 10:00 O2 Del Method Nasal Cannula 11/09/23 04:45 O2 Flow Rate 2 11/09/23 04:45 Documenting provider has reviewed patient's vital signs: yes General appearance: cooperative and in distress mild Nutritional appearance: obese HENMT Common normals: normocephalic and head/scalp atraumatic Respiratory Common normals: normal respiratory effort, no retractions, no use of accessory muscles and clear to auscultation bilaterally GI Common normals: non-tender and no hepatosplenomegaly Inspection: abdominal distension Auscultation: hypoactive bowel sounds Palpation: firm Extremity Common normals: normal to inspection and full ROM Neuro Common normals: oriented x3, CN's II-XII intact bilaterally, moves all extremities, no focal motor deficits and no sensory deficits noted Psych Common normals: mental status grossly normal, thought process normal, cooperative, denies homicidal ideation and denies suicidal ideation Results Labs Labs: Short CBC 11/08/23 11/09/23 Range/Units 17:10 04:49 WBC 14.3 H 10.2 (4.0-11.0) 10^3/uL Hgb 15.1 13.9 L (14.0-18.0) g/dL Hct 44.7 41.7 L (42.0-54.0) % Plt Count 339 280 (150-450) 10^3/uL BMP 11/08/23 11/09/23 17:10 04:49 Sodium 137 139 Potassium 3.7 3.7 Chloride 100 102 Carbon Dioxide 26.6 28.8 BUN 15.0 12.0 Creatinine 0.94 0.90 Glucose 156 H 137 H Calcium 8.9 8.3 L Liver Function 11/08/23 Range/Units 17:10 Total Bilirubin 0.8 (0.2-1.0) mg/dL AST 27 (15-37) U/L ALT 77 H (16-63) U/L Alkaline Phosphatase 67 (46-116) U/L Albumin 3.9 (3.4-5.0) g/dL Urine 11/08/23 Range/Units 17:16 Urine Color Yellow (YELLOW) Urine Clarity Clear (CLEAR) Urine pH 6.0 (5.0-9.0) Ur Specific [place] 1.020 (1.005-1.025) Urine Protein Trace (NEG/TRACE) mg/dL Urine Glucose (UA) Negative (NEGATIVE) mg/dL Assessment and Plan Assessment and Plan (1) Small bowel obstruction: Assessment and Plan: Small bowel obstruction with a transition point. X-ray abdominal series this morning shows worsening high-grade small bowel obstruction. No free air. G-tube was clamped, follow-up x-ray is pending after oral contrast given. Gen. surgery consulted. Once follow-up x-ray is performed, we will start patient on intermittent suction. Pain is reasonably controlled. Continue with conservative care for now. Continue with IV fluids, IV Zofran as needed. Further care as per general surgery's recommendation (2) Hypertension: Assessment and Plan: Unable to take by mouth medication. Monitor BP. Slightly above goal. IV hydralazine as needed Qualifiers: Hypertension type: primary hypertension Qualified Code(s): I10 - Essential (primary) hypertension (3) Congenital hydroureteronephrosis: Assessment and Plan: Chronic, unchanged because of prior genitourinary surgery when he was a child. Urology was consulted overnight and will wait for their recommendation.
[2023-11-09] MEDS: 0.9 % SODIUM CHLORIDE 1,000 ML 100 ML IV ×2 (12:24→22:14)
--- NOTE | 2023-11-09 13:16 | PM.GSCN ---
History of Present Illness Consult details Consult date: 11/09/23 Reason for consult: other Requesting physician: Shaikh Latha Narrative: Steffen Kendall a 43-year-old male who presented to the Emergency Department yesterday afternoon with complaints of epigastric abdominal pain described as knifelike ten out of ten progressively becoming worse during the day associated with nausea and vomiting. He denies any history of hematemesis melena or hematochezia or history of ulcer disease or prior abdominal surgery. He had a CT scan of the abdomen and pelvis with IV Contrast only which demonstrated possible bowel obstruction with two separate points of obstruction.as small bowel movement yesterday 11 AM the pain was worse. He admits to drinking 6-12 beers every weekend but denies any alcohol use. He denies any family history of colon cancer or inflammatory bowel disease. He has never had this prior to this visit. His is at his bedside. 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 Since I reviewed the chart and ordered a small bowel series's morning he is feeling much better and has had a few bowel movements with very little stool. He feels as if something has moved through since noon. Review of Systems ROS Status of ROS 10 or more systems reviewed and unremarkable except as noted in history and below 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 - Congenital hydronephrosis (ICD-10) Sleep apnea treated with continuous positive airway pressure (CPAP) ?G47.30 - Sleep apnea, unspecified (ICD-10) Hydronephrosis ?N13.30 - Unspecified hydronephrosis (ICD-10) Hypertension ?I10 - Essential (primary) hypertension (ICD-10) Surgical History [place] teeth extracted ?K08.409 - Partial loss of teeth, unspecified cause, unspecified class (ICD-10) H/O bursectomy ?Z98.890 - Other specified postprocedural states (ICD-10) Family History Other Family history of cancer Family history of diabetes mellitus Family history of hypertension Social History Within the past year, how often did you have a drink containing alcohol: 2-3 times a week Within the past year, how many standard drinks containing alcohol did you have on a typical day: 7 to 9 Within the past year, how often did you have six or more drinks on one occasion: weekly Total score: 9 Score interpretation: A score of 4 or more indicates drinking is likely to affect patient's safety. Smoking status: Never smoker Non-prescribed substance use: denies use Highest level of school completed/degree received: Associate degree: academic program Meds Home Medications and Allergies Home Medications Medication Instructions Recorded Confirmed Type amlodipine 10 mg tablet 10 mg PO DAILY 11/08/23 11/08/23 History lisinopril 20 1 tab PO DAILY 11/08/23 11/08/23 History mg-hydrochlorothiazide 12.5 mg tablet Allergies Allergy/AdvReac Type Severity Reaction Status Date / Time latex Allergy Intermediate Swelling Verified 11/08/23 17:04 of Lip/Tongue/Throat Penicillins Allergy Intermediate Verified 11/08/23 17:04 Exam Constitutional Vital Signs, click to edit/add: Last Vital Signs Temp 98.0 F 11/09/23 04:45 Pulse 70 11/09/23 12:00 Resp 16 11/09/23 04:45 BP 155/89 H 11/09/23 04:45 Pulse Ox 90 L 11/09/23 11:34 O2 Del Method Room Air 11/09/23 11:34 O2 Flow Rate 2 11/09/23 04:45 Documenting provider has reviewed patient's vital signs: yes Common normals: no apparent distress, oriented x3, healthy appearing, alert and well nourished General appearance: cooperative, comfortable and well developed Nutritional appearance: overweight Orientation/consciousness: Yes awake, Yes oriented to person, Yes oriented to place and Yes oriented to time Respiratory Common normals: clear to auscultation bilaterally Cardio Common normals: regular rate, regular rhythm and no murmurs GI Common normals: Normal to inspection, nondistended, normoactive bowel sounds present, soft to palpation, non-tender and no masses Auscultation: hyperactive bowel sounds Palpation: soft Neuro Common normals: oriented x3 and CN's II-XII intact bilaterally Results Labs Labs: Abnormal lab results 11/08/23 11/09/23 Range/Units 17:10 04:49 WBC 14.3 H (4.0-11.0) 10^3/uL RBC 4.69 L (4.70-6.10) 10^6/uL Hgb 13.9 L (14.0-18.0) g/dL Hct 41.7 L (42.0-54.0) % MPV 9.3 L 9.2 L (9.5-13.5) fL Neut % (Auto) 86.6 H 77.8 H (43.0-75.0) % Lymph % (Auto) 6.0 L 12.2 L (20.5-60.0) % Eos % (Auto) 0.6 L 0.2 L (0.9-7.0) % Baso % (Auto) 0.1 L (0.2-2.0) % Neut # (Auto) 12.4 H 7.9 H (1.4-6.5) 10^3/uL Lymph # (Auto) 0.9 L (1.2-3.8) 10^3/uL Dare # (Auto) 0.9 H 1.0 H (0.3-0.8) 10^3/uL Glucose 156 H 137 H (74-106) mg/dL Calcium 8.3 L (8.5-10.1) mg/dL ALT 77 H (16-63) U/L Diabetes panel 11/08/23 11/09/23 Range/Units 17:10 04:49 Sodium 137 139 (136-145) mmol/L Potassium 3.7 3.7 (3.5-5.1) mmol/L Chloride 100 102 (98-107) mmol/L Carbon Dioxide 26.6 28.8 (21.0-32.0) mmol/L BUN 15.0 12.0 (7.0-18.0) mg/dL Creatinine 0.94 0.90 (0.70-1.30) mg/dL Glucose 156 H 137 H (74-106) mg/dL Calcium 8.9 8.3 L (8.5-10.1) mg/dL AST 27 (15-37) U/L ALT 77 H (16-63) U/L Alkaline Phosphatase 67 (46-116) U/L Total Protein 7.7 (6.4-8.2) g/dL Albumin 3.9 (3.4-5.0) g/dL Calcium panel 11/08/23 11/09/23 Range/Units 17:10 04:49 Calcium 8.9 8.3 L (8.5-10.1) mg/dL Albumin 3.9 (3.4-5.0) g/dL Pituitary panel 11/08/23 11/09/23 Range/Units 17:10 04:49 Sodium 137 139 (136-145) mmol/L Potassium 3.7 3.7 (3.5-5.1) mmol/L Chloride 100 102 (98-107) mmol/L Carbon Dioxide 26.6 28.8 (21.0-32.0) mmol/L BUN 15.0 12.0 (7.0-18.0) mg/dL Creatinine 0.94 0.90 (0.70-1.30) mg/dL Glucose 156 H 137 H (74-106) mg/dL Calcium 8.9 8.3 L (8.5-10.1) mg/dL Adrenal panel 11/08/23 11/09/23 Range/Units 17:10 04:49 Sodium 137 139 (136-145) mmol/L Potassium 3.7 3.7 (3.5-5.1) mmol/L Chloride 100 102 (98-107) mmol/L Carbon Dioxide 26.6 28.8 (21.0-32.0) mmol/L BUN 15.0 12.0 (7.0-18.0) mg/dL Creatinine 0.94 0.90 (0.70-1.30) mg/dL Glucose 156 H 137 H (74-106) mg/dL Calcium 8.9 8.3 L (8.5-10.1) mg/dL Total Bilirubin 0.8 (0.2-1.0) mg/dL AST 27 (15-37) U/L ALT 77 H (16-63) U/L Alkaline Phosphatase 67 (46-116) U/L Total Protein 7.7 (6.4-8.2) g/dL Albumin 3.9 (3.4-5.0) g/dL All other labs normal. Imaging Abdominal x-ray: report reviewed Abdomen CT scan report/results: report reviewed and image reviewed Abdominal ultrasound report/results: report reviewed Assessment and Plan Assessment and Plan (1) Small bowel obstruction: (2) Hypertension: Qualifiers: Hypertension type: primary hypertension Qualified Code(s): I10 - Essential (primary) hypertension (3) Congenital hydroureteronephrosis: (4) Obesity: Qualifiers: Obesity type: unspecified obesity type Serious obesity comorbidity presence: with serious comorbidity Body mass index: BMI 40.0-44.9 Plan Nasogastric tube was placed last evening with minimal output and this morning small bowel series was performed and after three hours the contrast had passed into the large bowel but there were still multiple loops of small bowel with air throughout. Most likely this is an ileus versus partial obstruction but no signs of complete obstruction therefore would continue to treat conservatively by clamping nasogastric tube keeping nothing by mouth and repeat abdominal x-ray tomorrow morning and as long as the contrast travels and no more nausea and vomiting we will assess tomorrow and possibly try to start clear liquids and progressed diet as tolerated. If patient should continue to have problems he may follow-up with me as outpatient in the future and we can do further workup with endoscopy or and/or CCK HIDA scan if needed although I don't believe those would be needed at this time. I would encourage the patient to lose weight since his BMI is over forty-three.
--- NOTE | 2023-11-09 14:09 | PM.CN ---
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 Nausea, emesis and minimal diarrhea noted. CT AP w contrast notes a small bowel obstruction and incidental finding of moderate to severe left hydroureteronephrosis that tapers distally, higher insertion into the bladder. Pt denies flank pain, issues or changes with urination, UTIs, or other urologic issues since his surgery. Last evaluated by Urology 10 years ago and was told both kidneys were normal size without issues. WBC, Cr wnl, UA neg for UTI. He is being treated with NGT and NPO for SBO. 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 - Congenital hydronephrosis (ICD-10) Sleep apnea treated with continuous positive airway pressure (CPAP) ?G47.30 - Sleep apnea, unspecified (ICD-10) Hydronephrosis ?N13.30 - Unspecified hydronephrosis (ICD-10) Hypertension ?I10 - Essential (primary) hypertension (ICD-10) Surgical History [place] teeth extracted ?K08.409 - Partial loss of teeth, unspecified cause, unspecified class (ICD-10) H/O bursectomy ?Z98.890 - Other specified postprocedural states (ICD-10) Family History Other Family history of cancer Family history of diabetes mellitus Family history of hypertension Social History Within the past year, how often did you have a drink containing alcohol: 2-3 times a week Within the past year, how many standard drinks containing alcohol did you have on a typical day: 7 to 9 Within the past year, how often did you have six or more drinks on one occasion: weekly Total score: 9 Score interpretation: A score of 4 or more indicates drinking is likely to affect patient's safety. Smoking status: Never smoker Non-prescribed substance use: denies use Highest level of school completed/degree received: Associate degree: academic program Meds Home Medications and Allergies Home Medications Medication Instructions Recorded Confirmed Type amlodipine 10 mg tablet 10 mg PO DAILY 11/08/23 11/08/23 History lisinopril 20 1 tab PO DAILY 11/08/23 11/08/23 History mg-hydrochlorothiazide 12.5 mg tablet Allergies Allergy/AdvReac Type Severity Reaction Status Date / Time latex Allergy Intermediate Swelling Verified 11/08/23 17:04 of Lip/Tongue/Throat Penicillins Allergy Intermediate Verified 11/08/23 17:04 Exam Narrative Exam Narrative: No acute distress, appears nontoxic NGT to IWS Nonlabored respirations, symmetric chest rise, on room air Normal rate and rhythm, no peripheral edema No CVA tenderness to palpation, no suprapubic TTP Moves all extremities, no deformities Alert and oriented x 4, no acute focal deficits Skin dry, intact Appropriate, cooperative Constitutional Vital Signs, click to edit/add: Last Vital Signs Temp 98.0 F 11/09/23 04:45 Pulse 81 11/09/23 14:00 Resp 16 11/09/23 04:45 BP 155/89 H 11/09/23 04:45 Pulse Ox 90 L 11/09/23 11:34 O2 Del Method Room Air 11/09/23 11:34 O2 Flow Rate 2 11/09/23 04:45 Results Labs Labs: Short CBC 11/08/23 11/09/23 Range/Units 17:10 04:49 WBC 14.3 H 10.2 (4.0-11.0) 10^3/uL Hgb 15.1 13.9 L (14.0-18.0) g/dL Hct 44.7 41.7 L (42.0-54.0) % Plt Count 339 280 (150-450) 10^3/uL BMP 11/08/23 11/09/23 17:10 04:49 Sodium 137 139 Potassium 3.7 3.7 Chloride 100 102 Carbon Dioxide 26.6 28.8 BUN 15.0 12.0 Creatinine 0.94 0.90 Glucose 156 H 137 H Calcium 8.9 8.3 L Liver Function 11/08/23 Range/Units 17:10 Total Bilirubin 0.8 (0.2-1.0) mg/dL AST 27 (15-37) U/L ALT 77 H (16-63) U/L Alkaline Phosphatase 67 (46-116) U/L Albumin 3.9 (3.4-5.0) g/dL Urine 11/08/23 Range/Units 17:16 Urine Color Yellow (YELLOW) Urine Clarity Clear (CLEAR) Urine pH 6.0 (5.0-9.0) Ur Specific [place] 1.020 (1.005-1.025) Urine Protein Trace (NEG/TRACE) mg/dL Urine Glucose (UA) Negative (NEGATIVE) mg/dL Imaging CT scan - abdomen: My impression: mod - severe L hydroureteronephrosis down to ureteral reimplant into superior aspect of bladder. Delayed nephrogram Radiologist's impression: CT ABDOMEN AND PELVIS WITH CONTRAST: INDICATION: upper abdominal pain. COMPARISON: Right upper quadrant ultrasound 11/08/2023. TECHNIQUE: Helical CT images of the abdomen and pelvis were obtained after the administration of intravenous contrast. Dose reduction techniques were achieved by using automated exposure control and/or adjustment of mA and/or kV according to patient size and/or use of iterative reconstruction technique. FINDINGS: LOWER CHEST: Normal. LIVER: Mild fatty infiltration and the liver is mildly enlarged at 20 cm in length. GALLBLADDER AND BILIARY SYSTEM: Normal. SPLEEN: Normal. PANCREAS: Normal. ADRENAL GLANDS: Normal. KIDNEYS AND URETERS: Right kidney appears normal. There is moderate to severe left hydronephrosis and hydroureter. The ureter is markedly dilated distally and it tapers near the urinary bladder. The distal left ureter is not well visualized. It appears to possibly inserted in an abnormal position in the left urinary bladder anterior to the normal location of the ureterovesical junction. There are adjacent surgical clips and this may be due to previous ureterectomy. VASCULATURE: Normal. RETROPERITONEUM AND LYMPH NODES: Normal, with no lymphadenopathy. GASTROINTESTINAL TRACT/MESENTERY: There are multiple dilated loops of small bowel with air-fluid levels. Distal small bowel is underdistended. There is a transition point in the left paracentral mid abdomen on image 93 series 3 although the small bowel is also slightly dilated distal to this point. Another possible transition point is seen within the right upper quadrant on image 68. There is trace ascites. The appendix is not visualized. BLADDER: Normal. REPRODUCTIVE SYSTEM: Normal prostate. BODY WALL: There is a small fat-containing umbilical hernia. BONES: No acute abnormality. CT/CT abdomen pelvis w con IMPRESSION: 1. Multiple dilated small bowel loops with 2 possible transition points as described above. Findings are consistent with a moderate small bowel obstruction. 2. Fatty liver and hepatomegaly. 3. Moderate to severe left hydroureteronephrosis. The left ureter tapers distally and appears to insert abnormally high in the urinary bladder which may be due to previous surgery. Findings are suspicious for a distal ureteral stricture. Consider urology consultation. Electronically authenticated by: HAMILTON LÓPEZ Date: 11/08/2023 21:33 Assessment and Plan Assessment and Plan (1) Hydroureteronephrosis: (2) Small bowel obstruction: Plan 43 yo male admitted with SBO was found to have moderate to severe left hydroureteronephrosis. 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 He was told things were back to normal when last evaluated 10 years ago. No imaging here to review from prior. Renal function WNL, unlikely source of pain however discussed delayed nephrogram on imaging and f/u [facility]. Discussed potential for further renal decline if this is not addressed as well as infection. Given asymptomatic, preserved renal function and here for bowel obstruction, reasonable to hold off on intervention at this time. Recommend close follow up outpatient with reconstructive urologist for NM renal scan and further evaluation to see if repeat ureteral reimplant is necessary if obstructed. Given prior surgery, reconstructive specialist/tertiary center is recommended. All questions and concerns addressed with pt and family.
[2023-11-10] VITALS (11 sets, daily range): BP systolic 133–138; BP diastolic 76–80; PULSE 62–86; RESP 18–20; TEMP 36.7–36.9; O2SAT 94–96
[2023-11-10] MEDS: BENZOCAINE/MENTHOL SORE THROAT LOZENGE 1 LOZENGE PO (02:39)
[2023-11-10 05:00] LABS: Basophils Percent Auto 0.5 % (0.2-2.0); Eosinophils Absolute Auto 0.2 10^3/uL (0.0-0.7); Eosinophils Percent Auto 2.7 % (0.9-7.0); Hematocrit 39.8 % (42.0-54.0); Hemoglobin 12.9 g/dL (14.0-18.0); Immature Granulocytes Abs Auto 0.02 10^3/uL (0.00-0.03); Immature Granulocytes Pct Auto 0.3 % (0.0-0.5); Lymphocytes Absolute Auto 1.8 10^3/uL (1.2-3.8); Lymphocytes Percent Auto 22.6 % (20.5-60.0); Mean Corpuscular HGB Conc 32.4 g/dL (29.9-35.2); Mean Corpuscular Hemoglobin 29.5 pg (25.9-34.0); Mean Corpuscular Volume 90.9 fL (80.0-94.0); Mean Platelet Volume 9.2 fL (9.5-13.5); Monocytes Absolute Auto 1.2 10^3/uL (0.3-0.8); Monocytes Percent Auto 15.1 % (1.7-12.0); Neutrophils Absolute Auto 4.6 10^3/uL (1.4-6.5); Neutrophils Percent Auto 58.8 % (43.0-75.0); Platelet Count 268 10^3/uL (150-450); Red Blood Count 4.38 10^6/uL (4.70-6.10); Red Cell Distribution Width 11.9 % (11.0-15.0); White Blood Count 7.9 10^3/uL (4.0-11.0)
[2023-11-10 05:12] LABS: Anion Gap 11.9; BUN Creatinine Ratio 15.6; Calcium 8.2 mg/dL (8.5-10.1); Carbon Dioxide 27.8 mmol/L (21.0-32.0); Chloride 108 mmol/L (98-107); Estimated GFR (African America >60 (>=60); Estimated GFR (Non-African Ame >60 (>=60); Glucose 112 mg/dL (74-106); Potassium 3.7 mmol/L (3.5-5.1); Sodium 144 mmol/L (136-145)
--- NOTE | 2023-11-10 06:00 | XR_ITS ---
The [address] [address] Patient Name: MALENA MENDOZA MRN: [id number] date: 1980 Sex: M Assigned Patient Location: [place] Current Patient Location: [place] Accession/Order Number: [id number] Exam Date: 11/10/2023 05:50 Report Date: 11/10/2023 06:31 At the request of: YESY MONTEIRO Procedure: XR abdomen 1V EXAMINATION: XR abdomen 1V HISTORY: sbo COMPARISON: 11/08/2023 FINDINGS: BOWEL GAS PATTERN: Decompression of small bowel loops with progression of contrast now opacifying the colon and rectum CALCIFICATIONS: None significant. OTHER: Enteric tube tip in the left upper quadrant likely within the gastric lumen. No abnormal gaseous collections. XR/XR abdomen 1V IMPRESSION: Decompression of small bowel obstruction with passage of contrast now within the colon and rectum Electronically authenticated by: DESEAN SHANNON Date: 11/10/2023 06:31
[2023-11-10] MEDS: 0.9 % SODIUM CHLORIDE 1,000 ML 100 ML IV (07:54)
[2023-11-10] MEDS: PANTOPRAZOLE SODIUM 40 MG VIAL IV (08:36)
[2023-11-10] MEDS: AMLODIPINE BESYLATE 5 MG TABLET 10 MG PO (11:43)
--- NOTE | 2023-11-10 12:43 | CM.NOTE ---
Rounds made with Dr. Azul, increasing pt's diet and if pt tolerates may discharge to home this afternoon. Dr. Azul will discuss plan with Dr. Rodríguez. No discharge needs identified.
--- NOTE | 2023-11-10 16:08 | PM.DS1 ---
DS: Providers Provider Date of admission: 11/08/23 22:59 Primary care physician: Gay Bueno MD Consults: 11/08/23 22:26 Consult to General Surgeon Routine Consulting Provider: Ian Rodríguez Reason for consultation: SBO Has provider been notified: Yes 11/08/23 22:32 Consult to Urology Routine Consulting Provider: Lindsay Forbes Reason for consultation: L Hydroureter, ? stricture Has provider been notified: Yes Attending physician on discharge: Shaikh Latha Discharging clinician: Shaikh Latha Anticipated date of discharge: 11/10/23 DS: Diagnosis Discharge Diagnosis (1) Small bowel obstruction: Assessment and plan: Admitted for SBO -Managed conservatively - resolved during hospital stay. Had multiple bowel movements. Contrast seen passing through the bowel and f/u XR indicating resolution of SBO. Tolerated PO diet. Denies any GI symptoms. Stable for discharge. D/w General surgery. In agreement with plan of care. (2) Hypertension: Assessment and plan: C.w home meds Qualifiers: Hypertension type: primary hypertension Qualified Code(s): I10 - Essential (primary) hypertension (3) Congenital hydroureteronephrosis: Assessment and plan: Congenital, asymptomatic. Had surgery for it as a child. Evaluated by Urology and recommended outpatient f/u DS: Summary Hospital Course Hospital Course: 43 y o male presented with nausea, vomiting, abdominal distention and pain to ED and was admitted for SBO. He was managed conservatively with IVF, pain control, anti emetics, NGT insertion. General Surgery was consulted and followed the patient throughout the hospital course. His SBO resolved without surgical intervention with following imaging studies indicating contrast passing through the bowels, and resolution of dilated bowel loops. Patient had multiple bowel movements overnight and all his symptoms had resolved when I saw him today. His diet was advanced and he tolerated food without nausea, vomiting or pain and was thus, discharged home. Patient educated on signs and symptoms of bowel obstruction and instructed to return to ED if he developed similar symptoms. Stable for discharge. F/u with PCP in one week. F/u with Urology as outpatient. Status at Discharge Functional status at discharge: independent ambulation Overall status at discharge: patient is back to baseline Time Spent with Patient Time attestation: Total time spent providing and/or coordinating discharge services: Exam Constitutional Vital Signs, click to edit/add: Last Vital Signs Temp 98.4 F 11/10/23 13:57 Pulse 72 11/10/23 14:00 Resp 20 11/10/23 13:57 BP 133/80 11/10/23 13:57 Pulse Ox 94 L 11/10/23 13:57 O2 Del Method Room Air 11/10/23 13:57 O2 Flow Rate 2 11/10/23 03:28 Documenting provider has reviewed patient's vital signs: yes General appearance: cooperative and in distress mild Nutritional appearance: obese Respiratory Common normals: normal respiratory effort, no retractions, no use of accessory muscles and clear to auscultation bilaterally GI Common normals: Normal to inspection, nondistended, normoactive bowel sounds present, soft to palpation, non-tender and no hepatosplenomegaly DS: Data Data Completed and Pending Labs on day of discharge: Labs from last 24 hours 11/10/23 04:48 WBC 7.9 RBC 4.38 L Hgb 12.9 L Hct 39.8 L MCV 90.9 MCH 29.5 MCHC 32.4 RDW 11.9 Plt Count 268 MPV 9.2 L Neut % (Auto) 58.8 Lymph % (Auto) 22.6 [place] % (Auto) 15.1 H Eos % (Auto) 2.7 Baso % (Auto) 0.5 Neut # (Auto) 4.6 Lymph # (Auto) 1.8 [place] # (Auto) 1.2 H Eos # (Auto) 0.2 Baso # (Auto) 0.0 Abs Immat Gran (auto) 0.02 Imm/Tot Granulo (auto) 0.3 Sodium 144 Potassium 3.7 Chloride 108 H Carbon Dioxide 27.8 Anion Gap 11.9 BUN 14.0 Creatinine 0.90 Est GFR ( Amer) >60 Est GFR (Non-Af Amer) >60 BUN/Creatinine Ratio 15.6 Glucose 112 H Calcium 8.2 L Discharge Plan Discharge Disposition: Home, Self-Care Condition: Good Discharge Medications: Continued amlodipine 10 mg tablet 10 mg PO DAILY lisinopril-hydrochlorothiazide 20-12.5 mg tablet 1 tab PO DAILY Activity: resume usual activities as tolerated Diet: advance to your usual diet Patient Instructions: Bowel Obstruction (DC) Forms: Portal Instructions Follow Up Appointments: Wed. Miki. 24 @ 10:30am with Dr. Bueno [phone] *discuss urologist referral*
--- NOTE | 2023-11-13 10:45 | CM.DCFOLLOWU ---
Person spoke with: patient How are you feeling? much better How is your pain? no pain Did you understand your discharge instructions? yes Do you have any questions about your discharge instructions? no Were you given any prescriptions at discharge? no Were you able to get your prescriptions filled? N/A Do you understand how to take your medications as ordered? yes Do you have any questions about your follow up appointment and do you plan to keep your follow up appointment? no questions, follow up with PCP on 11/15/23 Is there anything else that you would like to discuss? no Questions/Comments/Concerns/Other: N/A
== END 2023-11-10 16:42 | disposition home or self-care (01) | DRG 389 ==
LOC: ER 21:56 → MS 22:46
PROVIDERS: Nurse Practitioner Acute Care; Physician Assistant; Admitting Provider Internal Medicine; Emergency Provider Emergency Medicine; PCP Family Medicine; Visit Provider Internal Medicine
DX: K56.609 Unspecified intestinal obstruction, unspecified as to partial versus complete obstruction (principal); Q62.0 Congenital hydronephrosis; Z68.41 Body mass index [BMI] 40.0-44.9, adult; Z79.899 Other long term (current) drug therapy; I10 Essential (primary) hypertension; E66.9 Obesity, unspecified; Z83.3 Family history of diabetes mellitus; Z80.9 Family history of malignant neoplasm, unspecified; Z82.49 Family history of ischemic heart disease and other diseases of the circulatory system; G47.30 Sleep apnea, unspecified
CPT/HCPCS: 36415; 74018; 74022; 74177; 74250; 76705; 80048; 80053; 81003; 83605; 83690; 84484; 85025; 93005; 94761; 96361; 96374; 96375; 96376; 99285; J1170; J2270; J2405; Q9963; Q9967

== ENCOUNTER 2024-12-23 20:56 | Outpatient (OUT) | payer BC, SELFPAY ==
--- OUTSIDE RECORDS SUMMARY | 2024-12-23 21:09 | XMS_ITS | CCD ---
Author Organization [facility] Care Team Providers Care Journeyman Meat Cutter Name Role Phone YAJAIRA, Primary Care Unavailable FAWWAD, HEALY Admitting Unavailable Desean Mcnally Consulting Unavailable FASHAIKH BENNETT Attending Unavailable SHAIKH GATES Consulting Unavailable YAJAIRA, Admitting Unavailable DR GAY RONQUILLO Primary Care Unavailable FAWWAD, HEAYL Attending Unavailable FADONALD, HEALY Consulting Unavailable Gay Ronquillo Unavailable Allergies Allergy Classification Reported Allergen(s) Allergy Type Date of Onset Reaction(s) Facility (1 source) Cefaclor Drug Allergy 5 [facility] (1 source) Latex Drug allergy (disorder) 5 [facility] (1 source) Penicillins Drug allergy (disorder) 5 [facility] (3 sources) Substance with penicillin structure and antibacterial mechanism of action (substance) Drug allergy 5 Unknown [employer] Other (3 sources) Ceclor *CEPHALOSPORINS* Propensity to adverse reactions 5 Unknown [employer] Other Medications Current Medications Medication Drug Class(es) Dates Sig (Normalized) Sig (Original) amLODIPine 10 mg oral tablet (3 sources) Dihydropyridine Calcium Channel Riya amLODIPine Besylate 10 mg TAKE 1 TABLET DAILY Active hydroCHLOROthiazide 12.5 mg / lisinopril 20 mg oral tablet (3 sources) Thiazide Diuretic, Angiotensin Converting Enzyme Inhibitor Start: 07-01-2022 Lisinopril-hyd roCHLOROthiazi de 20-12.5 MG Lisinopril-hyd roCHLOROthiazi de 20-12.5MG, 2 (two) Tablet daily # 0, 07/01/2022, No Refill. 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 Intestinal obstruction without hernia (1 source) Unspecified intestinal obstruction, unspecified as to partial versus complete obstruction Episodic Other liver diseases (1 source) Fatty (change of) liver, not elsewhere classified; Translations: [FATTY CHANGE LIVER NEC] Onset: 07-29-2021 Chronic Other liver diseases (4 sources) Abnormal levels of other serum enzymes; Translations: [ABNORMAL LEVELS OTHER SERUM ENZYMES] Onset: 07-19-2021 Episodic Other liver diseases (3 sources) Elevated liver enzymes level; Translations: [Abnormal levels of other serum enzymes] Episodic Other screening for suspected conditions (not mental disorders or infectious disease) (1 source) Encounter for screening for lipoid disorders; Translations: [ENC SCREENING FOR LIPOID DISORDERS] Onset: 07-27-2021 Episodic Residual codes; unclassified (3 sources) Obstructive sleep apnea syndrome; Translations: [Obstructive sleep apnea (adult) (pediatric)] Chronic Residual codes; unclassified (1 source) Pain, unspecified; Translations: [Pain, unspecified] Onset: 11-15-2023 Episodic Results Test Name Value Interpretation Reference Range Facility HEPATITIS PANEL, [facility] HBsAg Screen Negative Normal Negative [facility] Comment on above: Performed By: #### H EPACUT #### [facility] [address] [address] [address] Harris Meier Hep A Ab, IgM Negative Normal Negative [facility] Comment on above: Performed By: #### H EPACUT #### [facility] [address] [address] [address] Harris Meier Hep B Core Ab, IgM Negative Normal Negative [facility] Comment on above: Performed By: #### H EPACUT #### [facility] [address] [address] [address] Harris Meier Hep C Virus Ab <0.1 Normal 0.0-0.9 [facility] Comment on above: Result Comment: Nega tive: < 0.8 Indeterminate: 0.8 - 0.9 Positive: > 0.9 . The CDC recommends that a positive HCV antibody result be followed up with a HCV Nucleic Acid Amplification test ([id number]). Performed By: #### H EPACUT #### [facility] [address] [place], [place] [address] Dr. Harris Meier US SINGLE QUAD RT UPPERon US SINGLE QUAD RT UPPER Ultrasound of the right upper quadrant HISTORY: . High enzyme level in serum . COMPARISON: None. TECHNIQUE: Grayscale and color imaging was performed FINDINGS: The body of the pancreas appears normal. The head and tail was obscured due to overlying bowel gas. Scanning of the liver demonstrates diffuse increased echogenicity of liver consistent with fatty infiltration of the liver. Grossly no masses were noted. The liver is enlarged measuring 20 cm. Color-flow is noted. Scanning of the gallbladder demonstrates a normal-appearing gallbladder. No stones are noted. No gallbladder wall thickening is noted. Common bile duct is normal measuring 3 mm. Right kidney measures 13.8 x 7.2 x 6.1 cm. Color-flow is noted. No solid renal cortical masses or hydronephrosis is noted. No fluid was noted in the right upper quadrant. Impression: 1. Liver is enlarged measuring 20 cm. There is increased echogenicity of liver consistent with fatty infiltration of the liver. 2. The head and body of the pancreas appears normal. The tail was obscured due to overlying bowel gas. 3. The remainder the right upper quadrant was unremarkable. Electronically authenticated by: DESEAN MCNALLY Date: 2021-07-20 10:29 Normal [facility] CBC AUTO DIFFon 07-14-2021 BASO # 0.0 103/ul Normal 0.0-0.1 [facility] Comment on above: Performed By: #### C BC #### [facility] [address] [place] [address] Dr. Harris Meier Basophils/100 WBC (Bld) 0.5 % Normal 0.2-2.0 [facility] Comment on above: Performed By: #### C BC #### [facility] [address] [address] [address] Harris Meier EO # 0.1 103/ul Normal 0.0-0.7 [facility] Comment on above: Performed By: #### C BC #### [facility] [address] [place] [address] Dr. Harris Meier Eosinophils/100 WBC (Bld) 1.5 % Normal 0.9-7.0 [facility] Comment on above: Performed By: #### C BC #### [facility] [address] [place] [address] Dr. Harris Meier Erythrocyte distribution width (RBC) [Ratio] 12.0 % Normal 11.0-15.0 [facility] Comment on above: Performed By: #### C BC #### [facility] [address] [place] [address] Dr. Harris Meier Hematocrit (Bld) [Volume fraction] 43.3 % Normal 42.0-54.0 [facility] Comment on above: Performed By: #### C BC #### [facility] [address] [place] [address] Dr. Harris Meier Hemoglobin (Bld) [Mass/Vol] 14.2 g/dL Normal 14.0-18.0 [facility] Comment on above: Performed By: #### C BC #### [facility] [address] [place] [address] Dr. Harris Meier IG # 0.07 10e3/ul Critically high 0.00-0.03 [facility] Comment on above: Performed By: #### C BC #### [facility] [address] [place] [address] Dr. Harris Meier IG % 0.8 % Critically high 0.0-0.5 [facility] Comment on above: Performed By: #### C BC #### [facility] [address] [place] [address] Dr. Harris Meier LYMPH # 2.6 103/ul Normal 1.2-3.8 [facility] Comment on above: Performed By: #### C BC #### [facility] [address] [place] [address] Dr. Harris Meier Lymphocytes/100 WBC (Bld) 30.1 % Normal 20.5-60.0 [facility] Comment on above: Performed By: #### C BC #### [facility] [address] [place] [address] Dr. Harris Meier MANUAL DIFF REQ NO Normal [facility] Comment on above: Performed By: #### C BC #### [facility] [address] [place] [address] Dr. Harris Meier MCH (RBC) [Entitic mass] 28.8 pg Normal 25.9-34.0 [facility] Comment on above: Performed By: #### C BC #### [facility] [address] [place] [address] Dr. Harris Meier MCHC (RBC) [Mass/Vol] 32.8 g/dL Normal 29.9-35.2 [facility] Comment on above: Performed By: #### C BC #### [facility] [address] [place] [address] Dr. Harris Meier MCV (RBC) [Entitic vol] 87.8 fL Normal 80.0-94.0 [facility] Comment on above: Performed By: #### C BC #### [facility] [address] [place] [address] Dr. Harris Meier MONO # 0.8 103/ul Normal 0.3-0.8 [facility] Comment on above: Performed By: #### C BC #### [facility] [address] [place] [address] Dr. Harris Meier Monocytes/100 WBC (Bld) 8.9 % Normal 1.7-12.0 [facility] Comment on above: Performed By: #### C BC #### [facility] [address] [place] [address] Dr. Harris Meier NEUT # 5.1 103/ul Normal 1.4-6.5 [facility] Comment on above: Performed By: #### C BC #### [facility] [address] [place] [address] Dr. Harris Meier Neutrophils/100 WBC (Bld) 58.2 % Normal 43.0-75.0 [facility] Comment on above: Performed By: #### C BC #### [facility] [address] [address] [address] Harris Meier Platelet mean volume (Bld) [Entitic vol] 10.0 fL Normal 9.5-13.5 [facility] Comment on above: Performed By: #### C BC #### [facility] [address] [place] [address] Dr. Harris Meier PLT 373 103/ul Normal 150-450 [facility] Comment on above: Performed By: #### C BC #### [facility] [address] [place] [address] Dr. Harris Meier RBC 4.93 106/ul Normal 4.70-6.10 [facility] Comment on above: Performed By: #### C BC #### [facility] [address] [place] [address] Dr. Harris Meier WBC 8.7 103/ul Normal 4.0-11.0 [facility] Comment on above: Performed By: #### C BC #### [facility] [address] [place] [address] Dr. Harris Meier LIPID PROFILEon 07-14-2021 CHOL-HDL RATIO NORM SEE BELOW Normal [facility] Comment on above: Result Comment: 3.3 - 4.4 LOW RISK 4.4 - 7.1 AVERAGE RISK 7.1 - 11.0 MODERATE RISK >11.0 HIGH RISK Performed By: #### C MP, LIPID #### [facility] [address] [place] [address] Dr. Harris Meier Cholesterol [Mass/Vol] 142 mg/dL Normal <=200 [facility] Comment on above: Performed By: #### C MP, LIPID #### [facility] [address] [place] [address] Dr. Harris Meier Cholesterol in HDL [Mass/Vol] 32 mg/dL Normal [facility] Comment on above: Performed By: #### C MP, LIPID #### [facility] [address] [place] [address] Dr. Harris Meier Cholesterol in LDL [Mass/Vol] 84.0 mg/dL Normal [facility] Comment on above: Performed By: #### C MP, LIPID #### [facility] [address] [place] [address] Dr. Harris Meier Cholesterol.total/Ch olesterol in HDL [Mass ratio] 4.4 {ratio} Normal [facility] Comment on above: Performed By: #### C MP, LIPID #### [facility] [address] [place] [address] Dr. Harris Meier HDL NORMAL > or = 60 mg/dl - LO W CARDIOVASCULAR RISK <40 mg/dl - HIGH CARDIOVASCULAR RISK Normal [facility] Comment on above: Performed By: #### C MP, LIPID #### [facility] [address] [place] [address] Dr. Harris Meier LDL CALC NORMAL SEE BELOW Normal [facility] Comment on above: Result Comment: <100 mg/dl OPTIMAL 100 - 129 mg/dl NEAR OR ABOVE OPTIMAL 130 - 159 mg/dl BORDERLINE HIGH 160 - 189 mg/dl HIGH >190 mg/dl VERY HIGH Performed By: #### C MP, LIPID #### [facility] [address] [place] [address] Dr. Harris Meier Triglyceride [Mass/Vol] 130 mg/dL Normal <=150 [facility] Comment on above: Performed By: #### C MP, LIPID #### [facility] [address] [place] [address] Dr. Harris Meier VLDL CALC 26.0 mg/dL Normal [facility] Comment on above: Performed By: #### C MP, LIPID #### [facility] [address] [place] [address] Dr. Harris Meier PROF 14(COMP METB)on 021 Albumin [Mass/Vol] 4.2 g/dL Normal 3.5-5.[address] [facility] Comment on above: Performed By: #### C MP, LIPID #### [facility] [address] [place] [address] Dr. Harris Meier Albumin/Globulin [Mass ratio] 1.3 {ratio} Normal [facility] Comment on above: Performed By: #### C MP, LIPID #### [facility] [address] [address] [address] Harris Meier ALP [Catalytic activity/Vol] 66 U/L Normal 38-126 [facility] Comment on above: Performed By: #### C MP, LIPID #### [facility] [address] [address] [address] Harris Meier ALT [Catalytic activity/Vol] 128 U/L Critically high 21-72 [facility] Comment on above: Performed By: #### C MP, LIPID #### [facility] [address] [address] [address] Harris Meier Anion gap [Moles/Vol] 10.5 mmol/L Normal [facility] Comment on above: Performed By: #### C MP, LIPID #### [facility] [address] [place] [address] Dr. Harris Meier AST [Catalytic activity/Vol] 49 U/L Normal 17-59 [facility] Comment on above: Performed By: #### C MP, LIPID #### [facility] [address] [address] [address] Harris Meier Bilirubin [Mass/Vol] 0.6 mg/dL Normal 0.2-1.3 [facility] Comment on above: Performed By: #### C MP, LIPID #### [facility] [address] [address] [address] Harris Meier Calcium [Mass/Vol] 9.2 mg/dL Normal 8.4-10.[address] [facility] Comment on above: Performed By: #### C MP, LIPID #### [facility] [address] [address] [address] Harris Meier Chloride [Moles/Vol] 104 mmol/L Normal 98-107 [facility] Comment on above: Performed By: #### C MP, LIPID #### [facility] [address] [address] [address] Harris Meier CO2 [Moles/Vol] 28.1 mmol/L Normal 22.0-30.0 [facility] Comment on above: Performed By: #### C MP, LIPID #### [facility] [address] [place] [address] Dr. Harris Meier Creatinine [Mass/Vol] 0.87 mg/dL Normal 0.66-1.25 [facility] Comment on above: Performed By: #### C MP, LIPID #### [facility] [address] [place] [address] Dr. Harris Meier EGFR-AF [place] >60 Normal >=60 [facility] Comment on above: Performed By: #### C MP, LIPID #### [facility] [address] [address] [address] Harris Meier EGFR-NON AF [place] >60 Normal >=60 [facility] Comment on above: Performed By: #### C MP, LIPID #### [facility] [address] [place] [address] Dr. Harris Meier Globulin (S) [Mass/Vol] 3.3 g/dL Normal [facility] Comment on above: Performed By: #### C MP, LIPID #### [facility] [address] [place] [address] Dr. Harris Meier Glucose [Mass/Vol] 96 mg/dL Normal 74-106 [facility] Comment on above: Performed By: #### C MP, LIPID #### [facility] [address] [place] [address] Dr. Harris Meier Potassium [Moles/Vol] 3.6 mmol/L Normal 3.4-5.0 [facility] Comment on above: Performed By: #### C MP, LIPID #### [facility] [address] [place] [address] Dr. Harris Meier Protein [Mass/Vol] 7.5 g/dL Normal 6.1-8.2 [facility] Comment on above: Performed By: #### C MP, LIPID #### [facility] [address] [place] [address] Dr. Harris Meier Sodium [Moles/Vol] 139 mmol/L Normal 137-145 [facility] Comment on above: Performed By: #### C MP, LIPID #### [facility] [address] [place], [place] [address] Dr. Harris Meier Urea nitrogen [Mass/Vol] 11.0 mg/dL Normal 9.0-20.0 [facility] Comment on above: Performed By: #### C MP, LIPID #### [facility] [address] [place], [place] [address] Dr. Harris Meier Urea nitrogen/Creatinine [Mass ratio] 12.6 mg/mg Normal [facility] Comment on above: Performed By: #### C MP, LIPID #### [facility] [address] [place], [place] [address] Dr. Harris Meier Coding Summaryon 01-30-2020 Coding Summary CODING DATE: 01/30/2020 [facility] STATUS: Home PAYOR: Kishor Cross APC DESCRIPTION 5113 Level 3 Musculoskeletal Procedures ADMIT DX: REASON FOR VISIT DX: M70.42 Prepatellar bursitis, left knee FINAL DX: PRINCIPAL: M70.42 Prepatellar bursitis, left knee SECONDARY: I10 Essential (primary) hypertension PYMT PROC APC STAT DESCRIPTION DOCTOR NAME DATE 5112 J1 Excision, prepatellar Murray Garrett And 01/24/2020 bursa LT Left side (used to identify procedures performed on the left side of the body) NOTE: The code number assigned matches the documented diagnosis and / or procedure in the patient's chart. However, the narrative phrase printed from the coding software may appear abbreviated, or result in slightly different terminology. Revised Coded By: Ling Wilkinson Revised Date Saved: 01/30/2020 09:58 am [facility] - AP Resultson 0 Lab - AP Results [id number] [id number] Normal [facility] Pathology Sendout Teston Pathology Send Out. See Report Normal [facility] Comment on above: Order Comment: Infec jimbo left knee bursa pt on bactrim for 5 days prior Performed By: #### 2 [id number] ####[facility] (DEFAULT)[address] [place] [address] History and Physicalon 01-27 History and Physical [id number]#1.[address] [place] [address] Provider Orderson 01-28-2020 Provider Orders [id number]#1.[address] [place] [address] C Fluidon 01-27-2020 C Fluid pt on bactrim for 5 days prior No growth at 3 days. [facility] Comment on above: Performed By: #### 1 [id number] ####[facility] (DEFAULT)[address] [place] [address] Consent Formson 01-27-2020 Consent Forms [id number]#1.[address] [place] [address] Discharge Instructionson Discharge Instructions [id number] [place] [address] Anesthesia Noteon 01-24-2020 Anesthesia Note Patient: JACQUELINE MENDOZA MRN: Age: 39 years Sex: MALE : 1980 Associated Diagnoses: None Author: Leonides Rees MD Postoperative Information Anesthetic utilized: General. Assessment Anesthetic outcome No anesthetic complications noted. Plan Transfer/ Discharge: Patient can be discharged from PACU when criteria met. Condition good. [Electronically Signed on: 01/24/2020 13:25 EDT] Leonides Rees MD [Verified on: 01/24/2020 13:25 EDT] Leonides Rees MD [facility] Anesthesia Note Patient: JACQUELINE MENDOZA MRN: [id number] Age: 39 years Sex: MALE : 1980 Associated Diagnoses: None Author: Leonides Rees MD Preoperative Information Anesthesia history: Family history. Patient history: No prior anesthesia problems. Review of Systems Constitutional: Negative. Cardiovascular: No Chest Pain. No SOB. Health Status Allergies: Allergic Reactions (All) Severity Not Documented Ceclor- Paralysis. Penicillin- No reactions were documented. Current medications: Home Medications (3) Active amLODIPine 10 mg oral tablet 10 mg = 1 tab(s), PO, Daily hydrochlorothiazide-ol mesartan 12.5 mg-20 mg oral tablet 1 tab(s), PO, BID [place] 5 mg-325 mg oral tablet 1 tab(s), PRN, PO, q4hr Problem list (past medical history): All Problems Hypertension / SNOMED CT 9359017820 / Confirmed Sleep apnea / SNOMED CT 460163133 / Confirmed Histories Family History: No family history items have been selected or recorded. Procedure history: Hydronephrosis (14632821). Social History Electronic Cigarette/Vaping Assessment Electronic Cigarette Use: Never. Alcohol Assessment Use: Current. Beer, 1-2 times per week Tobacco Assessment Never (less than 100 in lifetime) Tobacco Use:. Substance Abuse Assessment Substance use: Never. . Social & Psychosocial Habits Alcohol 01/23/2020 Alcohol Use: Current Type: Beer Frequency: 1-2 times per week Substance Abuse 01/23/2020 Substance use: Never Tobacco 01/23/2020 Smoking tobacco use: Never (less than 100 in l Electronic Cigarette/Vaping 01/23/2020 Electronic Cigarette Use: Never . Physical Examination Pain assessment: Self-reports no pain. General: Alert and oriented. Airway: Mallampati classification: II (soft palate, fauces, uvula visible). Temporomandibular joint mobility: Good. Respiratory: Lungs are clear to auscultation. Cardiovascular: Regular rhythm. Neurologic: Alert, Oriented. Review / Management Laboratory Results Plan [place] [employer]esthesiologists#(ASA ) physical status classification: Class III, E. Anesthetic Preoperative Plan Anesthesia: General. . Anesthetic plan, risks, benefits, and alternatives discussed with the patient and/or family. Patient verbalized understanding. Informed consent was given. Anesthetic technique: General anesthesia. [Electronically Signed on: 01/24/2020 12:22 EDT] Fullam, Leonides MD [Verified on: 01/24/2020 12:22 EDT] Leonides Rees MD [facility] C Anaerobicon 01-24-2020 C Anaerobic pt on bactrim for 5 days prior No anaerobic growth at 7 Days Rare White Blood Cells No organisms seen. [facility] Comment on above: Performed By: #### 7 [id number] #### [facility] (DEFAULT) [address] [place] [id number] Inpatient Patient Summaryon 01-24-2020 Inpatient Patient Summary [address] [address] Patient Discharge Instructions Name: MALENA MENDOZA : 1980 Patient Address: [address] [place] [address] Primary Care Provider: Name: Gay Ronquillo MD After you are discharged if you find you have any questions, please, call [phone] ext [phone] to speak to a nurse. Discharge Diagnosis: Prepatellar abscess; Prepatellar bursitis Prescription Information: If you have been given a prescription for narcotics, seek immediate medical attention if you have any difficulty breathing or any sudden status changes such as confusion and sleepiness. If you or anyone you know is experiencing suicidal thoughts, mental health, alcohol and/or drug addiction problems; contact the [facility] 15/05 Crisis Hotline -Text 4HEFG td 517110. If you received any narcotics, sedation, or any other medication that causes drowsiness for the next 24 hours, unless otherwise directed: ? Do not drive a car. ? Do not operate machinery such as power tools, lawn mowers, drills, sewing machines, or stoves ? Avoid alcoholic beverages and drugs for allergies, nerves, or sleep ? Do not make important personal or business decisions or sign any legal documents [facility] would like to thank you for allowing us to assist you with your healthcare needs. The following includes patient education materials and information regarding your injury/illness. MALENA MENDOZA has been given the following list of follow-up instructions, prescriptions, and patient education materials: Follow-up Instructions With: Address: When: Murray Garrett [address] [facility], [address] [place], [place] [address] Business (2) In 4 days 01/28/2020 Comments: as per d/c appt card With: Address: When: Gay Ximena [address] [place] [address] [place] [address] Business (1) Medications During the course of your visit, your medication list was updated with the most current information. The details of those changes are reflected below: New Medications Printed Prescriptions acetaminophen-hydrocod one ([place] 5 mg-325 mg oral tablet) 1 tab(s) Oral Every 4 hours as needed for pain. 1 or 2 tabs every 4 hours prn pain. not to exceed 8 tablets/day. Refills: 0. ciprofloxacin (ciprofloxacin 750 mg oral tablet) 1 tab(s) Oral Every 12 hours scheduled time for 10 Days. Refills: 0. Medications to Continue That Have Not Changed Other Medications amLODIPine (amLODIPine 10 mg oral tablet) 1 tab(s) Oral every day. hydrochlorothiazide-ol mesartan (hydrochlorothiazide-o lmesartan 12.5 mg-20 mg oral tablet) 1 tab(s) Oral 2 times a day. It is important to always keep an active list of medications available so that you can share with other providers and manage your medications appropriately. As an additional courtesy, we are also providing you with your final active medications list that you can keep with you. acetaminophen-hydrocod one ([place] 5 mg-325 mg oral tablet) 1 tab(s) Oral Every 4 hours as needed for pain. 1 or 2 tabs every 4 hours prn pain. not to exceed 8 tablets/day. Refills: 0. amLODIPine (amLODIPine 10 mg oral tablet) 1 tab(s) Oral every day. ciprofloxacin (ciprofloxacin 750 mg oral tablet) 1 tab(s) Oral Every 12 hours scheduled time for 10 Days. Refills: 0. hydrochlorothiazide-ol mesartan (hydrochlorothiazide-o lmesartan 12.5 mg-20 mg oral tablet) 1 tab(s) Oral 2 times a day. Take only the medications listed above. Contact your doctor prior to taking any medications not on this list. Diet & Activity Patient Activity Level: Patient Diet: Regular Patient Activity Restrictions: Comment: Patient education materials, if any, will display below Percutaneous Abscess Drain Percutaneous abscess drain is removal of a collection of infected fluid inside the body (abscess). This is done by placing a thin needle under the skin and moving it into the abscess. A small tube (catheter) is inserted during the procedure and left in place for a few days to continue to drain the abscess. Tell a health care provider about: ? Any allergies you have. ? All medicines you are taking, including vitamins, herbs, eye drops, creams, and zejp-ptk-hnrqelj medicines. ? Any problems you or family members have had with anesthetic medicines. ? Any blood disorders you have. ? Any surgeries you have had. ? Any medical conditions you have. ? Whether you are or may be . ? Any history of tobacco use or smoking. What are the risks? Generally, this is a safe procedure. However, problems may occur, including: ? Infection. ? Bleeding. ? Allergic reaction to medicines or materials used. ? Damage to other structures or organs. ? Blockage of the catheter, requiring placement of a new catheter. ? A need to repeat the procedure. ? Failure of the procedure to drain the abscess completely, requiring an open surgical procedure to drain the abscess. An open procedure is done through a larger incision. What happens before the procedure? Medicines ? Ask your health care provider about: ? Changing or stopping your regular medicines. This is especially important if you are taking diabetes medicines or blood thinners. ? Taking medicines such as aspirin and ibuprofen. These medicines can thin your blood. Do not take these medicines before your procedure if your health care provider instructs you not to. Staying hydrated Follow instructions from your health care provider about hydration, which may include: ? Up to 2 hours before the procedure ? you may continue to drink clear liquids, such as water, clear fruit juice, black coffee, and plain tea. Eating and drinking restrictions Follow instructions from your health care provider about eating and drinking, which may include: ? 8 hours before the procedure ? stop eating heavy meals or foods such as meat, fried foods, or fatty foods. ? 6 hours before the procedure ? stop eating light meals or foods, such as toast or cereal. ? 6 hours before the procedure ? stop drinking milk or drinks that contain milk. ? 2 hours before the procedure ? stop drinking clear liquids. General instructions ? Plan to have someone take you home from the hospital or clinic. ? If you will be going home right after the procedure, plan to have someone with you for 24 hours. ? You may have blood tests or urine tests. ? You may get a tetanus shot. ? You may have imaging tests, such as an ultrasound, to check how large or deep your abscess is. What happens during the procedure? ? To lower your risk of infection: ? Your health care team will wash or sanitize their hands. ? The skin around the abscess will be washed with soap. ? Hair may be removed from the surgical site. ? An IV tube will be inserted into one of your veins. ? You will be given medicine to numb the area (local anesthetic) where the catheter will be placed. Placement of the catheter varies depending on where your abscess is located. ? You may be given medicine to help you relax (sedative) or medicine to make you fall asleep (general anesthetic). ? A small incision will be made in your skin. ? A needle will be inserted under your skin and moved into the abscess. Images from ultrasound, X-ray, or a CT scan will be used to help guide the needle to the abscess. ? A catheter will be inserted into your incision and moved underneath your skin until it reaches the abscess. Images will be used to help guide the catheter to the abscess. ? After the catheter is in place, the needle will be removed. The catheter will be connected to a bag outside of your body. The catheter will stay in place until the fluid has stopped draining and the infection is gone. The procedure may vary among health care providers and hospitals. What happens after the procedure? ? Your blood pressure, heart rate, breathing rate, and blood oxygen level will be monitored until the medicines you were given have worn off. ? You may have some pain or nausea. Medicines will be available to help you. Summary ? An abscess is a collection of infected fluid inside the body. ? During this procedure, images from ultrasound, X-rays, or a CT scan are used to help guide the needle and catheter to the abscess. ? A catheter will be left in place to continue to drain the abscess after the procedure. This information is not intended to replace advice given to you by your health care provider. Make sure you discuss any questions you have with your health care provider. Document Released: 02/23/2015 Document Revised: 08/31/2017 Document Reviewed: 08/31/2017 [employer] Patient Education ? 2019 [employer] Viruses or Bacteria What?s got you sick? Antibiotics only treat bacterial infections. Viral illnesses cannot be treated with antibiotics. When an antibiotic is not prescribed, ask your healthcare professional for tips on how to relieve symptoms and feel better. Usual Cause Illness Viruses Bacteria Antibiotic Needed Cold/Runny Nose NO Bronchitis/Chest Cold (in otherwise healthy children and adults) NO Whooping Cough Yes Flu NO Strep Throat Yes Sore Throat (except strep) NO Fluid in the middle ear (otitis media with effusion) NO Urinary Tract Infection Yes Antibiotics Aren?t Always the Answer www.cdc.gov/getsmart GET SMART Know When Antibiotics Work [place] Department of Health and Human Services Centers for Disease Control and Prevention June 2014 [facility] MAGR Intraoperative Recordon 01-24-2020 MAGR Intraoperative Record MAGR Intra-Op Record Summary Primary Physician: Murray Garrett DO Finalized Date/Time: 01/24/20 14:46:59 Pt. Name: MALENA MENDOZA/Sex: 1980 MALE Med Rec #: [id number] Physician: Murray Garrett DO Financial #: [id number] Pt. Type: D Room/Bed: / Admit/Disch: 01/24/20 09:57:00 - Institution: Case Times MAGR Entry 1 Patient In Room Time 01/24/20 12:20:00 Out Room Time 01/24/20 13:14:00 Anesthesia Start Time 01/24/20 12:21:00 Stop Time 01/24/20 13:16:00 Surgery Start Time 01/24/20 12:44:00 Stop Time 01/24/20 13:00:00 Last Modified By: Adriane Jorgensen RN 01/24/20 13:44:37 Case Attendance MAGR Entry 1 Entry 2 Entry 3 Case Attendee Murray Garrett William MD Sauer, Stephanie RN Andrew DO Role Performed Surgeon - Primary Anesthesiologist of Market Developer Record Time In 01/24/20 12:20:00 01/24/20 12:20:00 01/24/20 12:20:00 Time Out 01/24/20 13:14:00 01/24/20 13:14:00 01/24/20 13:14:00 Procedure Incision and Drainage Incision and Drainage Incision and Drainage Last Modified By: Adriane Jorgensen RN, Stephanie RN Sauer, Stephanie RN 01/24/20 13:47:57 01/24/20 13:47:57 01/24/20 13:47:57 Entry 4 Entry 5 Case Attendee Alphonso Christopher WEDGER MACHINE, Geovanna Clifton WEDGER MACHINE Role Performed Manager Enrollment Scrub Personnel Time In 01/24/20 12:20:00 01/24/20 12:20:00 Time Out 01/24/20 13:14:00 01/24/20 13:14:00 Procedure Incision and Drainage Incision and Drainage Last Modified By: Adriane Jorgensen RN, Stephanie RN 01/24/20 13:47:57 01/24/20 13:47:57 Surgical Procedures MAGR Pre-Care Text: A.20 Verifies operative procedure, surgical site, and laterality Im.150 Develops individualized plan of care Entry 1 Procedure Incision and Drainage Primary Procedure Yes Primary Surgeon Murray Garrett Surgeon Comment LEFT KNEE INCISION AND Paulo DO DRAINAGE, LEFT BURSECTOMY Start 01/24/20 12:44:00 Stop 01/24/20 13:00:00 Anesthesia Type General Surgical Service Orthopedics Wound Class Clean-Contaminated Technique Details Closure Technique Primary Entire procedure No was performed via laparoscope or robotic assistance Last Modified By: Yoselin Piña RN 01/24/20 14:46:47 Post-Care Text: O.730 The patient's care is consistent with the individualized perioperative plan of care General Case Data MAGR Pre-Care Text: A.350.1 Classifies surgical wound Entry 1 Case Information OR MAGR OR 05 Case Level Level 4 Wound Class Clean-Contaminated Specialty Orthopedics ASA Class 3E Diagnosis Preop Diagnosis PRE PATELAR BURSITIS Postop Same As Preop Yes Postop Diagnosis PRE PATELAR BURSITIS Blunt or No Is the procedure No penetrating injury considered occured prior to Emergent/Urgent? the start of the procedure: Last Modified By: Yoselin Piña RN 01/24/20 14:46:57 Post-Care Text: O.760 Patient receives consistent and comparable care regardless of the setting Time Out MAGR Entry 1 Time out date/time 01/24/20 12:42:00 All team members Yes have introduced themselves by name and role Surgeon, Yes Surgeon reviews Yes anesthesia, nurse critical or confirm patient, unexpected steps, site, procedure operative duration, anticipated blood loss Anesthesia team Yes Nursing team Yes reviews any reviews sterility patient-specific (including concerns indicator results) and equipment issues/concerns Antibiotic Antibiotic Yes Administration Time 12:48 prophylaxis given within the last 60 minutes Is essential N/A imaging displayed? Last Modified By: Adriane Jorgensen RN 01/24/20 13:58:51 Patient Positioning MAGR Pre-Care Text: A.280 Identifies baseline musculoskeletal status Im.40 Positions the patient Im.80 Applies safety devices Entry 1 Procedure Incision and Drainage Body Position Supine Left Arm Position Extended on padded arm Right Arm Position Extended on padded arm board board Left Leg Position Extended Right Leg Position Extended Feet Uncrossed? Yes Press Points Checked Yes Positioning Device Arm Boards, Arm Strap, Outcome Met (O.80) Yes Pillow, Safety Strap Last Modified By: Adriane Jorgensen RN 01/24/20 13:48:46 Post-Care Text: E.290 Evaluates musculoskeletal status O.80 Patient is free from signs and symptoms of injury related to positioning Skin Prep MAGR Pre-Care Text: A.30 Verifies allergies Im.270 Performs skin preparation Im.270.1 Implements protective measures to prevent skin and tissue injury due to chemical sources Entry 1 Skin Prep Syntegrity Prep Agents (Im.270) Chlorhexidine Gluconate Prep By Murray Garrett and Blayne Bates DO Prep Area (Im.270) Knee Prep Area Details Left Skin Prep Agent Dry Yes Without Pooling Hair Removal Syntegrity Hair Removal Methods No hair removal performed Outcome Met (O.100) Yes Last Modified By: Adriane Jorgensen RN 01/24/20 13:49:26 Post-Care Text: E.10 Evaluates for signs and symptoms of physical injury to skin and tissue O.100 Patient is free from signs and symptoms of chemical injury Counts Verification MAGR Pre-Care Text: A.20 Verifies operative procedure, surgical site, and laterality A.20.2 Assesses the risk for unintended retained foreign body Im.20 Performs required counts Entry 1 Procedure Incision and Drainage Counts Verification Initial Counts Items included in Sponges, Sharps Initial Counts Adriane Jorgensen RN, the Initial Count Performed By Geovanna Werner CST Initial Count Time 01/24/20 11:30:00 Counts Verification Final Counts Items Included in Sponges, Sharpshailesh Final Count Status Correct Final Count Final Counts Adriane Jorgensen RN, Final Count Time 01/24/20 12:56:00 Performed By Geovanna Werner CST Surgeon notified of Yes final counts status Outcome Met (O.20) Yes Last Modified By: Adriane Jorgensen RN 01/24/20 13:50:05 Post-Care Text: E.50 Evaluates results of the surgical count O.20 Patient is free from unintended retained foreign objects Tourniquet MAGR Pre-Care Text: A.240 Assesses baseline skin condition Im.120 Implements protective measures to prevent skin or tissue injury due to mechanical sources Entry 1 Tourniquet Type Tourniquet Cuff Size 60.9 cm Serial Number [id number] Setting 250 mmHg Placement Leg upper Padding (Im.120) Yes Placement Details Left Tourniquet Times Inflated 01/24/20 12:43:00 Deflated 01/24/20 12:55:00 Total Time 12 Applied By Murray Garrett Removed By Murray Garrett DO Outcome Met (O.60) Yes Last Modified By: Adriane Jorgensen RN 01/24/20 13:53:02 Post-Care Text: E.10 Evaluates for signs and symptoms of physical injury to skin and tissue O.60 Patient is free from sign and symptoms of injury caused by extraneous objects Cautery MAGR Pre-Care Text: A.240 Assesses baseline skin condition A.40 Verifies presence of prosthetics or corrective devices Im.50 Implements protective measures to prevent injury due to electrical sources Entry 1 ESU Type Electrosurgical Unit Identification [id number] Number ESU Settings Syntegrity Cut Setting 30 Coag Setting 30 Grounding Pad Details Grounding Pad Yes Verified By Adriane Jorgensen RN Needed? Grounding Pad Site Table Grounding Pad Within Expiration Yes Date? Outcome Met (O.10) Yes Last Modified By: Adriane Jorgensen RN 01/24/20 13:59:58 Post-Care Text: E.10 Evaluates for signs and symptoms of physical injury to skin and tissue O.10 Patient is free from signs and symptoms of injury related to thermal sources Cultures and Specimens MAGR Pre-Care Text: A.350 Assesses susceptibility for infection A.10 Confirms patient identity Im.320 Manages culture specimen collection Im.330 Manages specimen handling and disposition Entry 1 Cultures Ordered Yes Specimens Ordered Yes Outcome Met (O.40) Yes Last Modified By: Adriane Jorgensen RN 01/24/20 14:00:04 Post-Care Text: E.40 Evaluates correct processes have been performed for specimen handling and disposition O.40 Patient's specimen(s) is managed in the appropriate manner Medication Administration MAGR Pre-Care Text: A.210 Identifies physiological status Im.220 Administers prescribed medications Entry 1 Time Administered 01/24/20 12:58:00 Medication .5% MARCAINE Route of Admin SubQ Volume 10 mL By Murray Garrett Outcome Met (O.130) Yes Paulo DO Last Modified By: Adriane Jorgensen RN 01/24/20 14:00:44 Post-Care Text: E.20 Evaluates response to medications O.130 Patient receives appropriately administered medication(s) Dressing/Packing MAGR Pre-Care Text: A.350 Assesses susceptibility for infection Im.290 Administer care to wound sites Entry 1 Skin Prep Agent Yes Site Knee Removed Prior to Dressing? Site Details Left Dressing Item Details Dressing Item ABD Tape (Im.290) Elastic Sports Bandage (Im.290) Outcome Met Yes Last Modified By: Adriane Jorgensen RN 01/24/20 14:01:17 Post-Care Text: E.200 Evaluates progress of wound healing O.200 Patient's wound perfusion is consistent with or improved from baseline levels Departure from OR MAGR Entry 1 Present on Depart Oxygen Via Stretcher Post-op Destination PACU Skin DFO Condition Dry Description Condition Warm Description Report Given To Tarik CLAYTON, Yasemin Jordan Airway Maintenance Patient Status Stable Oxygen in Use? Yes Airway Device Simple mask Flow Rate 10 mL Last Modified By: Adriane Jorgensen RN 01/24/20 14:02:24 Case Comments Finalized By: Yoselin Piña RN Document Signatures Signed By: Adriane Jorgensen RN 01/24/20 14:07 Yoselin Piña RN 01/24/20 14:46 Unfinalized History Date/Time Username Reason for Unfinalizing Freetext Reason for Unfinalizing 01/24/20 14:46 MHBLONG [facility]R PACU Record Summary Primary Physician: Murray Garrett DO Finalized Date/Time: 01/24/20 14:39:07 Pt. Name: MALENA MENDOZA/Sex: 1980 MALE Med Rec #: [id number] Physician: Murray Garrett DO Financial #: [id number] Pt. Type: D Room/Bed: / Admit/Disch: 01/24/20 09:57:00 - Institution: PACU Case Times MAGR Entry 1 In PACU I 01/24/20 13:17:00 Discharge from PACU 01/24/20 13:38:00 I Last Modified By: Yasemin Montanez RN 01/24/20 13:38:53 Finalized By: Yasemin Montanez RN Document Signatures Signed By: Yasemin Montanez RN 01/24/20 14:39 [facility] MAGR Postoperative Record MAGR Phase II Record Summary Primary Physician: Murray Garrett DO Finalized Date/Time: 01/24/20 14:44:10 Pt. Name: MALENA MENDOZA/Sex: 1980 MALE Med Rec #: [id number] Physician: Murray Garrett DO Financial #: [id number] Pt. Type: D Room/Bed: / Admit/Disch: 01/24/20 09:57:00 - Institution: Phase II Case Times MAGR Pre-Care Text: Patient is free from s/s of injury. Patient remains free from compromised physical state related to surgery or anesthesia. Patient comfort maintained. Patient/family verbalize understanding of discharge instructions. Entry 1 In PACU II 01/24/20 13:42:00 Discharge from PACU 01/24/20 14:17:00 II Last Modified By: Yasemin Montanez RN 01/24/20 14:17:50 Post-Care Text: The patient remains free from s/s of injury. Patient's vital signs stable, circulation maintained, return to preop mental and physical status, opsite/dressing intact, minimal or absent nausea and vomiting, tolerates po intake. Patient verbalizes adequate pain control. Patient/family express understanding of discharge instructions. Finalized By: Yasemin Montanez RN Document Signatures Signed By: Yasemin Montanez RN 01/24/20 14:44 [facility] MAGR Preoperative Recordon 0 01-24-2020 MAGR Preoperative Record MAGR Pre-Op Record Summary Primary Physician: Murray Garrett DO Finalized Date/Time: 01/24/20 14:39:41 Pt. Name: MALENA MENDOZA Raghu Barahona./Sex: 1980 MALE Med Rec #: [id number] Physician: Murray Garrett DO Financial #: [id number] Pt. Type: D Room/Bed: / Admit/Disch: 01/24/20 09:57:00 - Institution: Pre-Op Case Times MAGR Pre-Care Text: Patient will be optimally prepared for surgery. Patient is free from s/s of injury. Provide information to patient/family related to plan of care. Verify patient allergies. Confirm identity and verify consent before the operative or invasive procedure. Entry 1 Patient Arrival Time 01/24/20 10:15:00 Preop Departure 01/24/20 12:15:00 Last Modified By: Yasemin Montanez RN 01/24/20 14:39:37 Post-Care Text: Patient is prepared mentally and physically and is ready for surgery. The patient remains free from s/s of injury. Patient/family express understanding of plan of care and participate in decisions affecting his or her perioperrative plan of care. Allergies documented appropriately. Patient identifiers and consent correct. General Comments: Pt arrived ambulatory to PSW. Denies SOB, chest pain, or fever. Denies pacemaker. Pt has sleep apnea and brought cpap with him. Finalized By: Yasemin Montanez RN Document Signatures Signed By: Yasemin Montanez RN 01/24/20 14:39 [facility] Operative Report - Surgeon/P florina 01-24-2020 Operative Report - Surgeon/Physician Preoperative diagnosis: Prepatellar bursitis left knee Assess prepatellar bursa left knee Postoperative diagnosis: Same Procedure: Incision and drainage of abscess left knee Bursectomy left knee prepatellar Surgeon: Angie Garrett D.O. Anesthesia: General Indications for surgery: Patient had a septic bursitis he had failed outpatient conservative treatment and oral antibiotics and was becoming febrile well I had recommended incision and drainage with bursectomy he was agreeable informed consent was obtained Estimated blood loss: 5 cc Complications: There were no complications Findings: Brown purulent fluid was noted in the prepatellar bursa and outside of the bursa and subcutaneous tissue Procedure summary: Patient was brought to the operative suite he was given a general anesthetic the left leg was sterilely prepped and draped in usual fashion a timeout was taken. The leg was exsanguinated with gravity and the tourniquet was inflated to 250 mmHg. An incision was made over the prepatellar bursa incision was made through the thick dermis and into the subcutaneous fat and then brown purulent fluid was encountered this was cultured and drained into a culturette and sent submitted for cultures. I then incised on into the bursa and noted additional fluid I read the bursa had thickened significantly with scarlike tissue this was excised sharply. The wound was then thoroughly irrigated with a mixture of Winthrop dine and saline exploring all around the area to make sure there were no hidden pockets. Thorough irrigation and then deflation of the tourniquet verified furcation of hemostasis. Into the empty cavity a packed iodoform gauze. I closed the tissue around this gauze with a Vicryl suture and 3-0 nylon. ABDs and a 6 inch Doni bandages were applied. [Electronically Signed on: 01/24/2020 13:19 EDT] Murray Garrett DO [Verified on: 01/24/2020 13:19 EDT] Murray Garrett DO [facility] Patient Handouton 01-24-2020 Patient Handout Infectious Disease Percutaneous Abscess Drain Percutaneous abscess drain is removal of a collection of infected fluid inside the body (abscess). This is done by placing a thin needle under the skin and moving it into the abscess. A small tube (catheter) is inserted during the procedure and left in place for a few days to continue to drain the abscess. Tell a health care provider about: ? Any allergies you have. ? All medicines you are taking, including vitamins, herbs, eye drops, creams, and iytj-wag-hkhldnr medicines. ? Any problems you or family members have had with anesthetic medicines. ? Any blood disorders you have. ? Any surgeries you have had. ? Any medical conditions you have. ? Whether you are or may be . ? Any history of tobacco use or smoking. What are the risks? Generally, this is a safe procedure. However, problems may occur, including: ? Infection. ? Bleeding. ? Allergic reaction to medicines or materials used. ? Damage to other structures or organs. ? Blockage of the catheter, requiring placement of a new catheter. ? A need to repeat the procedure. ? Failure of the procedure to drain the abscess completely, requiring an open surgical procedure to drain the abscess. An open procedure is done through a larger incision. What happens before the procedure? Medicines ? Ask your health care provider about: ? Changing or stopping your regular medicines. This is especially important if you are taking diabetes medicines or blood thinners. ? Taking medicines such as aspirin and ibuprofen. These medicines can thin your blood. Do not take these medicines before your procedure if your health care provider instructs you not to. Staying hydrated Follow instructions from your health care provider about hydration, which may include: ? Up to 2 hours before the procedure ? you may continue to drink clear liquids, such as water, clear fruit juice, black coffee, and plain tea. Eating and drinking restrictions Follow instructions from your health care provider about eating and drinking, which may include: ? 8 hours before the procedure ? stop eating heavy meals or foods such as meat, fried foods, or fatty foods. ? 6 hours before the procedure ? stop eating light meals or foods, such as toast or cereal. ? 6 hours before the procedure ? stop drinking milk or drinks that contain milk. ? 2 hours before the procedure ? stop drinking clear liquids. General instructions ? Plan to have someone take you home from the hospital or clinic. ? If you will be going home right after the procedure, plan to have someone with you for 24 hours. ? You may have blood tests or urine tests. ? You may get a tetanus shot. ? You may have imaging tests, such as an ultrasound, to check how large or deep your abscess is. What happens during the procedure? ? To lower your risk of infection: ? Your health care team will wash or sanitize their hands. ? The skin around the abscess will be washed with soap. ? Hair may be removed from the surgical site. ? An IV tube will be inserted into one of your veins. ? You will be given medicine to numb the area (local anesthetic) where the catheter will be placed. Placement of the catheter varies depending on where your abscess is located. ? You may be given medicine to help you relax (sedative) or medicine to make you fall asleep (general anesthetic). ? A small incision will be made in your skin. ? A needle will be inserted under your skin and moved into the abscess. Images from ultrasound, X-ray, or a CT scan will be used to help guide the needle to the abscess. ? A catheter will be inserted into your incision and moved underneath your skin until it reaches the abscess. Images will be used to help guide the catheter to the abscess. ? After the catheter is in place, the needle will be removed. The catheter will be connected to a bag outside of your body. The catheter will stay in place until the fluid has stopped draining and the infection is gone. The procedure may vary among health care providers and hospitals. What happens after the procedure? ? Your blood pressure, heart rate, breathing rate, and blood oxygen level will be monitored until the medicines you were given have worn off. ? You may have some pain or nausea. Medicines will be available to help you. Summary ? An abscess is a collection of infected fluid inside the body. ? During this procedure, images from ultrasound, X-rays, or a CT scan are used to help guide the needle and catheter to the abscess. ? A catheter will be left in place to continue to drain the abscess after the procedure. This information is not intended to replace advice given to you by your health care provider. Make sure you discuss any questions you have with your health care provider. Document Released: 02/23/2015 Document Revised: 08/31/2017 Document Reviewed: 08/31/2017 [employer] Patient Education ? 2019 [employer] [facility] Vital Signs Date Time Vital Sign Value Performing Clinician Facility 11-20-2023 08:45-0500 Body height 182.88 cm Gay Ronquillo Other [facility] Other 11-20-2023 08:45-0500 Body mass index (BMI) [Ratio] 43.18 kg/m2 Gay Ronquillo Other [facility] Other 11-20-2023 08:45-0500 Body weight 144.43 kg Gay Ronquillo Other [facility] Other 11-20-2023 08:45-0500 Diastolic blood pressure 77 mm[Hg] Gay Ronquillo Other [facility] Other 11-20-2023 08:45-0500 Systolic blood pressure 119 mm[Hg] Gay Ronquillo Other [facility] Other 06-23-2023 10:00-0400 Body height 182.88 cm Gay Ronquillo Other [facility] Other 06-23-2023 10:00-0400 Body mass index (BMI) [Ratio] 43.8 kg/m2 Gay Ronquillo Other [facility] Other 06-23-2023 10:00-0400 Body weight 146.51 kg Gay Ronquillo Other [facility] Other 06-23-2023 10:00-0400 Diastolic blood pressure 81 mm[Hg] Gay Ronquillo Other [facility] Other 06-23-2023 10:00-0400 Systolic blood pressure 126 mm[Hg] Gay Ronquillo Other [facility] Other Encounters Encounter Date Encounter Type Care Provider Facility Start: 11-20-2023 End: 11-20-2023 ambulatory Gay Ronquillo Other [facility] Other Start: 11-20-2023 Office outpatient vi sit 25 minutes Gay Ronquillo [facility] Start: 11-20-2023 Telephone encounter Gay Ronquillo [facility] Start: 11-15-2023 ambulatory [facility] Start: 06-23-2023 End: 06-23-2023 ambulatory Gay Ronquillo Other [facility] Other Start: 06-23-2023 Encounter for genera l adult medical examination without abnormal findings Gay Ronquillo [facility] Start: 06-23-2023 Periodic preventive med est patient 40-64yrs Gay Ronquillo [facility] Start: 07-19-2021 End: 07-20-2021 ambulatory [facility] Facility:[facility] Start: 07-14-2021 End: 07-15-2021 ambulatory [facility] Facility:[facility] Payers Date Payer Category Payer Unknown [id number] 1980 Unknown [id number] 1957 Unknown [id number] [place] [id number] Social History Date Type Detail Facility Sex Assigned At [facility] Other Evaluation note 11-20-2023 Note Date & Type Note Facility 11-20-2023 Evaluation note Encounter Date Diagnosis Assessment Notes Oct, SBO (small bowel obstruction) (ICD-10 - K56.609) Reviewed notes and CT. No known cause of bowel obstruction. Reviewed [place] small bowel. Followup w Dr. Anne cao Oct, Congenital hydroureter (ICD-10 - Q62.39) Referral to [facility] Oct, Essential hypertension (ICD-10 - I10) Continue present med [facility] Other Evaluation note 06-23-2023 Note Date & Type Note Facility 06-23-2023 Evaluation note Encounter Date Diagnosis Assessment Notes Jun, Well adult exam (ICD-10 - Z00.00) We have discussed the necessity of following up with PCP regularly as well as specialists, as needed. Discussed F/U with dentistry and optometry at least yearly. Discussed all preventative measures/ cancer screenings as applicable to this patient. Emphasized the importance of a reduced fat, low carb diet to promote heart health and controlled blood sugars. Reviewed social history and ensured patient is safe within the home today. Pt denies any abuse of alcohol, nicotine, caffeine or recreational drugs. I have ensured patient is of stable mental and physical health today. We have discussed appropriate F/U schedule as well as blood work and vaccinations that apply. All questions answered and patient is sent home pleased, without concerns. States he had labs at work and they were normal. [facility] Other Evaluation note Note Date & Type Note Facility Evaluation note No Information [facility] Other History general Narrative - Reported Note Date & Type Note Facility History general Narrative - Reported Type Medical History Elevated liver enzymes Medical History Essential hypertension Surgical History L knee bursectomy 2019 Surgical History Kidney reconstructio n ( blocked ureter) age 6 Hospitalization History see surgical hx [facility] Other History general Narrative - Reported Note Date & Type Note Facility History general Narrative - Reported Type Medical History Elevated liver enzymes Medical History Essential hypertension Surgical History L knee bursectomy 2019 Surgical History Kidney reconstructio n ( blocked ureter) age 6 Hospitalization History see surgical hx Hospitalization History [facility] 10/2023 [facility] Other Summary Purpose Family History No Family History Records FoundNo Family History Records FoundNo Family History Records Found Advance Directives No Advanced Directives Records FoundNo Advanced Directives Records FoundNo Advanced Directives Records Found Hospital Course Note [facility] SURGERY Clinical Discharge Summary PERSON INFORMATION Name MALENA MENDOZA Age 39 Years 1980 Sex MALE Language Azerbaijani PCP Ximena TORREZ, Gay Galvan Marital Status Med Service Ambulatory Surgery Acct# Arrival 01/24/2020 09:57:00 Visit Reason IA ND LEFT KNEE WITH BURSECTOMY Acuity LOS 000 24:25 Address: [address] [place] [id number] Comment: PROVIDER INFORMATION VITALS INFORMATION Vital Sign Triage Latest Temp Oral Temp Temporal Temp Intravascular Temp Axillary Temp Rectal 02 Sat 97 % 96 % Respiratory Rate Peripheral Pulse Rate Apical Heart Rate Blood Pressure / 67 mmHg / 67 mmHg Comment: MEDICAL INFORMATION Allergy Info: Ceclor; penicillin Prescriptions Given: acetaminophen-hydrocodone ([place] 5 mg-325 mg oral tablet) 1 tab(s) Oral Every 4 hours as needed for pain. 1 or 2 tabs every 4 hours prn pain. not to exceed 8 tablets/day. Refills: 0. amLODIPine (amLODIPine 10 mg oral tablet) 1 tab(s) Oral every day. ciprofloxacin (cipro (more content not included)... Reason for Referral Reason Followup for congent ial hydroureter, mother is est at this practice. CT and hospital notes from [place] are scanned in. Diagnosis 1 Congenital hydrouret er (Q62.39) Referral Organization [facility] silvia Referring Provider First Name Gay Referring Provider Last Name Ximena Referring Provider Specialty [facility] Referred Organization [facility] Referred Provider Devendra Pineda Referred Address [address] [place], [place],[address] Referred Provider Specialty Urology Referral Priority Routine Additional Source Comments (unrecognized sect ion and content) No Status Records FoundNo Status Records FoundNo Status Records Found INFORMATION SOURCE (unrecogn ized section and content) DATE CREATED AUTHOR 02/11/2020 [facility] DATE CREATED AUTHOR AUTHOR'S ORGANIZ ATION [facility]20[facility] DATE CREATED AUTHOR AUTHOR'S ORGANIZ ATION 11/18/2023 [facility] REASON FOR VISIT (unrecogniz ed section and content) [facility] FOR RECORDS PERTAINING TO PATIENTS WHO ARE OR HAVE BEEN ENROLLED IN A CHEMICAL DEPENDENCY/SUBSTANCEABUSE PROGRAM, SOME INFORMATION MAY BE OMITTED. This clinical summary was aggregated from multiple sources. Caution should be exercised in using it in the provision of clinical care. This summary normalizes information from multiple sources, and as a consequence, information in this document may materially change the coding, format and clinical context of patient data. In addition, data may be omitted in some cases. CLINICAL DECISIONS SHOULD BE BASED ON THE PRIMARY CLINICAL RECORDS. [employer] provides no warranty or guarantee of the accuracy or completeness of information in this document.
== END 2024-12-23 20:57 | disposition home or self-care (01) ==
LOC: SLEEP 20:56
PROVIDERS: PCP Family Medicine; Visit Provider Family Medicine
DX: G47.33 Obstructive sleep apnea (adult) (pediatric) (principal)
CPT/HCPCS: 95811

== ENCOUNTER 2025-06-27 09:04 | Outpatient (OUT) | payer BC, SELFPAY ==
--- OUTSIDE RECORDS SUMMARY | 2025-06-27 09:07 | XMS_ITS | Clinical Summary ---
Author Organization [facility] Address [address] [place] [address] Care Team Providers Care Internal Auditor Name Role Phone Unavailable Primary Care Provider Unavailabl e Social History Tobacco Use Types Packs/Day Years Used Date Smoking Tobacco: Never Assessed Sex and Gender Information Value Date Recorded Sex Assigned at Not on file Legal Sex Male 9:33 PM EDT Gender Identity Not on file Sexual Orientation Not on file Plan of Treatment Not on file
--- OUTSIDE RECORDS SUMMARY | 2025-06-27 09:07 | XMS_ITS | Clinical Summary ---
Author Organization [facility] tem Address [id number] [address] [place] [address] Care Team Providers Care Geospatial Imagery Intelligence Analyst Name Role Phone Unavailable Primary Care Provider Unavailabl e Social History Tobacco Use Types Packs/Day Years Used Date Smoking Tobacco: Never Assessed Childcare Answer Date Recorded Childcare Unknown 04/03/2019 Employment Answer Date Recorded Employment Unknown 04/03/2019 Sex and Gender Information Value Date Recorded Sex Assigned at Not on file Legal Sex Male 11:33 AM EDT Gender Identity Not on file Sexual Orientation Not on file Plan of Treatment Health Maintenance Due Date Last Done Comments Depression Screening 1994 Tobacco Screening 1994 Adult BMI Screening 2000 DTaP,Tdap and Td Vaccines (1 - Tdap) 2001 Influenza Vaccine 06/23/2025 [employer] Not on file Insurance [employer]
--- OUTSIDE RECORDS SUMMARY | 2025-06-27 09:07 | XMS_ITS | Clinical Summary ---
Author Organization [facility] Address [address] [place] [address] Care Team Providers Care Sweetbread Trimmer Name Role Phone Gay Bueno MD Primary Care Provider [phone] Social History Tobacco Use Types Packs/Day Years Used Date Smoking Tobacco: Never Assessed Sex and Gender Information Value Date Recorded Sex Assigned at Not on file Legal Sex Male 7:30 PM EDT Gender Identity Not on file Sexual Orientation Not on file Last Filed Vital Signs Vital Sign Reading Time Taken Comments Blood Pressure 130/75 11/22/2018 12:00 PM EST Pulse - - Temperature - - Respiratory Rate - - Oxygen Saturation - - Inhaled Oxygen Concentration - - Weight 132 kg (290 lb) 11/03/2020 12:00 PM EST Height 182.9 cm (6') 11/03/2020 12:00 PM EST Body Mass Index 39.33 11/03/2020 12:00 PM EST Plan of Treatment Not on file Insurance [employer] Care Teams Sweetbread Trimmer Relationship Specialty Start Date End Date Gay Bueno MD PCP - General Family Medicine 01/22/25
--- OUTSIDE RECORDS SUMMARY | 2025-06-27 09:26 | XMS_ITS | CCD ---
Author Organization [facility] ion Partnership [facility] Care Team Providers Care Appraiser Real Estate Name Role Phone FADONALD, HEALY Primary Care Unavailable FAWWAD, HEALY Admitting Unavailable Desean Mcnally Consulting Unavailable FAWWAD, HEALY Attending Unavailable FADONALD, Consulting Unavailable FAWTRISTAN, HEALY Admitting Unavailable DR GAY RONQUILLO Primary Care Unavailable FAWWAD, HEALY Attending Unavailable FAWWAKajal, HEALY Consulting Unavailable Gay Ronquillo Gay Ronquillo MD Primary Care Provider [phone] Dayana Pagan DO Attending Provider Gay Ronquillo MD Attending Provider [phone] Allergies Allergy Classification Reported Allergen(s) Allergy Type Date of Onset Reaction(s) Facility (1 source) Cefaclor Drug Allergy 04-23-20 15 [facility] (1 source) Latex Drug allergy (disorder) 04-23-20 15 [facility] (3 sources) Penicillins Drug allergy (disorder) 04-23-20 15 [facility] Comment on above: Onset Date: 06/26/20 15 (3 sources) Substance with penicillin structure and antibacterial mechanism of action (substance) Drug allergy 06-26-20 15 Unknown [facility] Other (3 sources) Ceclor *CEPHALOSPORINS* Propensity to adverse reactions 06-26-20 15 Unknown [employer] Other (2 sources) Cephalosporins (Antibiotic) Allergy to substance 05-28-20 25 [facility] Comment on above: Onset Date: 06/26/20 15 Medications Current Medications Medication Drug Class(es) Dates Sig (Normalized) Sig (Original) Cpap (Continuous Positive Airway Pressure) unit (3 sources) Start: 06-27-2025 Cpap (Continuous Positive Airway Pressure) unit Active 0 .Route 1 June 27, 2025 12:00am As directed Start: 09-03-2024 Cpap (Continuo us Positive Airway Pressure) unit Active 0 .Route 1 September 03, 2024 1:00am As directed hydroCHLOROthiazide 12.5 mg / lisinopril 20 mg oral tablet (12 sources) Thiazide Diuretic, Angiotensin Converting Enzyme Inhibitor Start: 05-28-2025 End: 06-27-2025 take 1 tablet by mouth twice daily Lisinopril-Hydrochlorothiazide 20-12.5 mg tablet Active 1 TAB PO Twice daily 180 June 27, 2025 8:59am Complies with drug therapy Start: 07-29-2024 End: 05-28-2025 Lisinopril-Hydrochlorothiazi de 20-12.5 mg tablet Discontinued 0 .ROUTE .COMPLEX 180 August 30, 2024 11:40am May 28, 2025 9:46am TAKE 2 TABLETS DAILY Start: 06-28-2024 End: 07-29-2024 take 2 tablets by mouth once daily Lisinopril-Hydrochlorothiazide 20-12.5 m g tablet Discontinued 2 TAB PO Daily June 28, 2024 12:00am July 29, 2024 9:27am Start: 07-01-2022 Lisinopril-hyd roCHLOROthiazide 20-12.5 MG Lisinopril-hydroCHLOROthiazide 20-12.5MG, 2 (two) Tablet daily # 0, 07/01/2022, No Refill. Active Oral daily for 0 Jun, Active Completed/Discontinued Medications Medication Drug Class(es) Dates Sig (Normalized) Sig (Original) amLODIPine 10 mg oral tablet (12 sources) Dihydropyridine Calcium Channel Riya Start: 06-28-2024 End: 06-27-2025 take 1 tablet by mouth once daily Amlodipine 10 mg tablet Discontinued 10 MG PO Daily 90 June 28, 2024 10:39am August 26, 2024 2:45pm amLODIPine Besyl ate 10 mg TAKE 1 TABLET DAILY Active Problems Problem Classification Problem Date Documented Da te Episodic/Chronic Essential hypertension (11 sources) Essential (primary) hypertension; Translations: [Essential hypertension] [...] levels of other serum enzymes] Episodic Other lower respiratory disease (2 sources) Snoring; Translations: [Snoring] 05-28-2025 Episodic Other nutritional; endocrine; and metabolic disorders (2 sources) Obesity; Translations: [Obesity, unspecified] 05-28-2025 Chronic Other screening for suspected conditions (not mental disorders or infectious disease) (1 source) Encounter for screening for lipoid disorders; Translations: [ENC SCREENING FOR LIPOID DISORDERS] Onset: 07-27-2021 Episodic Residual codes; unclassified (9 sources) Obstructive sleep apnea syndrome; Translations: [Obstructive sleep apnea (adult) (pediatric)] 09-03-2024 Chronic Residual codes; unclassified (2 sources) Hypersomnia; Translations: [Hypersomnia, unspecified] 05-28-2025 Chronic Residual codes; unclassified (1 source) Pain, unspecified; Translations: [Pain, unspecified] Onset: 11-15-2023 Episodic Results Test Name Value Interpretation Reference Range Facility HEPATITIS PANEL, [facility] HBsAg Screen Negative Normal Negative [facility] Comment on above: Performed By: #### H EPACUT #### [facility] [address] [address] [address] Harris Meier Hep A Ab, IgM Negative Normal Negative [facility] Comment on above: Performed By: #### H EPACUT #### [facility] [address] [address] [address] Harris Meier Hep B Core Ab, IgM Negative Normal Negative [facility] Comment on above: Performed By: #### H EPACUT #### [facility] [address] [address] [address] Harris Meier Hep C Virus Ab <0.1 Normal 0.0-0.9 [facility] Comment on above: Result Comment: Nega tive: < 0.8 Indeterminate: 0.8 - 0.9 Positive: > 0.9 . The CDC recommends that a positive HCV antibody result be followed up with a HCV Nucleic Acid Amplification test ([id number]). Performed By: #### H EPACUT #### [facility] [address] [address] [address] Harris Meier US SINGLE QUAD RT [...] DESEAN MCNALLY Date: 2021-07-20 10:29 Normal [facility] CBC AUTO DIFFon 07-14-2021 BASO # 0.0 103/ul Normal 0.0-0.1 [facility] Comment on above: Performed By: #### C BC #### [facility] [address] [address] [address] Harris Meier Basophils/100 WBC (Bld) 0.5 % Normal 0.2-2.0 [facility] Comment on above: Performed By: #### C BC #### [facility] [address] [address] [address] Harris Meier EO # 0.1 103/ul Normal 0.0-0.7 [facility] Comment on above: Performed By: #### C BC #### [facility] [address] [place] [address] Dr. Harris Meier Eosinophils/100 WBC (Bld) 1.5 % Normal 0.9-7.0 [facility] Comment on above: Performed By: #### C BC #### [facility] [address] [place] [address] Dr. Harris Meier Erythrocyte distribution width (RBC) [Ratio] 12.0 % Normal 11.0-15.0 [facility] Comment on above: Performed By: #### C BC #### [facility] [address] [place] [address] Dr. Harris Meier Hematocrit (Bld) [Volume fraction] 43.3 % Normal 42.0-54.0 [facility] Comment on above: Performed By: #### C BC #### [facility] [address] [place] [address] Dr. Harris Meier Hemoglobin (Bld) [Mass/Vol] 14.2 g/dL Normal 14.0-18.0 [facility] Comment on above: Performed By: #### C BC #### [facility] [address] [place] [address] Dr. Harris Meier IG # 0.07 10e3/ul Critically high 0.00-0.03 [facility] Comment on above: Performed By: #### C BC #### [facility] [address] [place] [address] Dr. Harris Meier IG % 0.8 % Critically high 0.0-0.5 [facility] Comment on above: Performed By: #### C BC #### [facility] [address] [place] [address] Dr. Harris Meier LYMPH # 2.6 103/ul Normal 1.2-3.8 [facility] Comment on above: Performed By: #### C BC #### [facility] [address] [place] [address] Dr. Harris Meier Lymphocytes/100 WBC (Bld) 30.1 % Normal 20.5-60.0 [facility] Comment on above: Performed By: #### C BC #### [facility] [address] [place] [address] Dr. Harris Meier MANUAL DIFF REQ NO Normal [facility] Comment on above: Performed By: #### C BC #### [facility] [address] [place] [address] Dr. Harris Meier MCH (RBC) [Entitic mass] 28.8 pg Normal 25.9-34.0 [facility] Comment on above: Performed By: #### C BC #### [facility] [address] [place] [address] Dr. Harris Meier MCHC (RBC) [Mass/Vol] 32.8 g/dL Normal 29.9-35.2 [facility] Comment on above: Performed By: #### C BC #### [facility] [address] [place] [address] Dr. Harris Meier MCV (RBC) [Entitic vol] 87.8 fL Normal 80.0-94.0 [facility] Comment on above: Performed By: #### C BC #### [facility] [address] [place] [address] Dr. Harris Meier MONO # 0.8 103/ul Normal 0.3-0.8 [facility] Comment on above: Performed By: #### C BC #### [facility] [address] [place] [address] Dr. Harris Meier Monocytes/100 WBC (Bld) 8.9 % Normal 1.7-12.0 [facility] Comment on above: Performed By: #### C BC #### [facility] [address] [place] [address] Dr. Harris Meier NEUT # 5.1 103/ul Normal 1.4-6.5 [facility] Comment on above: Performed By: #### C BC #### [facility] [address] [place] [address] Dr. Harris Meier Neutrophils/100 WBC (Bld) 58.2 % Normal 43.0-75.0 [facility] Comment on above: Performed By: #### C BC #### [facility] [address] [place] [address] Dr. Harris Meier Platelet mean volume (Bld) [Entitic vol] 10.0 fL Normal 9.5-13.5 [facility] Comment on above: Performed By: #### C BC #### [facility] [address] [place] [address] Dr. Harris Meier PLT 373 103/ul Normal 150-450 [facility] Comment on above: Performed By: #### C BC #### [facility] [address] [place] [address] Dr. Harris Meier RBC 4.93 106/ul Normal 4.70-6.10 [facility] Comment on above: Performed By: #### C BC #### [facility] [address] [place] [address] Dr. Harris Meier WBC 8.7 103/ul Normal 4.0-11.0 [facility] Comment on above: Performed By: #### C BC #### [facility] [address] [place] [address] Dr. Harris Meier LIPID PROFILEon 07-14-2021 CHOL-HDL RATIO NORM SEE BELOW Normal [facility] Comment on above: Result Comment: 3.3 - 4.4 LOW RISK 4.4 - 7.1 AVERAGE RISK 7.1 - 11.0 MODERATE RISK >11.0 HIGH RISK Performed By: #### C MP, LIPID #### [facility] [address] [place] [address] Dr. Harris Meier Cholesterol [Mass/Vol] 142 mg/dL Normal <=200 [facility] Comment on above: Performed By: #### C MP, LIPID #### [facility] [address] [place] [address] Dr. Harris Meier Cholesterol in HDL [Mass/Vol] 32 mg/dL Normal [facility] Comment on above: Performed By: #### C MP, LIPID #### [facility] [address] [place] [address] Dr. Harris Meier Cholesterol in LDL [Mass/Vol] 84.0 mg/dL Normal [facility] Comment on above: Performed By: #### C MP, LIPID #### [facility] [address] [address] [address] Harris Meier Cholesterol.total/Ch olesterol in HDL [Mass ratio] 4.4 {ratio} Normal [facility] Comment on above: Performed By: #### C MP, LIPID #### [facility] [address] [address] [address] Harris Meier HDL NORMAL > or = 60 mg/dl - LO W CARDIOVASCULAR RISK <40 mg/dl - HIGH CARDIOVASCULAR RISK Normal [facility] Comment on above: Performed By: #### C MP, LIPID #### [facility] [address] [address] [address] Harris Meier LDL CALC NORMAL SEE BELOW Normal [facility] Comment on above: Result Comment: <100 mg/dl OPTIMAL 100 - 129 mg/dl NEAR OR ABOVE OPTIMAL 130 - 159 mg/dl BORDERLINE HIGH 160 - 189 mg/dl HIGH >190 mg/dl VERY HIGH Performed By: #### C MP, LIPID #### [facility] [address] [address] [address] Harris Meier Triglyceride [Mass/Vol] 130 mg/dL Normal <=150 [facility] Comment on above: Performed By: #### C MP, LIPID #### [facility] [address] [address] [address] Harris Meier VLDL CALC 26.0 mg/dL Normal [facility] Comment on above: Performed By: #### C MP, LIPID #### [facility] [address] [address] [address] Harris Meier PROF 14(COMP METB)on 021 Albumin [Mass/Vol] 4.2 g/dL Normal 3.5-5.0 [facility] Comment on above: Performed By: #### C MP, LIPID #### [facility] [address] [address] [address] Harris Meier Albumin/Globulin [Mass ratio] 1.3 {ratio} Normal [facility] Comment on above: Performed By: #### C MP, LIPID #### [facility] [address] [address] [address] Harris Meier ALP [Catalytic activity/Vol] 66 U/L Normal 38-126 [facility] Comment on above: Performed By: #### C MP, LIPID #### [facility] [address] [address] [address] Harris Meier ALT [Catalytic activity/Vol] 128 U/L Critically high 21-72 [facility] Comment on above: Performed By: #### C MP, LIPID #### [facility] [address] [address] [address] Harris Meier Anion gap [Moles/Vol] 10.5 mmol/L Normal [facility] Comment on above: Performed By: #### C MP, LIPID #### [facility] [address] [address] [address] Harris Meier AST [Catalytic activity/Vol] 49 U/L Normal 17-59 [facility] Comment on above: Performed By: #### C MP, LIPID #### [facility] [address] [address] [address] Harris Meier Bilirubin [Mass/Vol] 0.6 mg/dL Normal 0.2-1.3 [facility] Comment on above: Performed By: #### C MP, LIPID #### [facility] [address] [address] [address] Harris Meier Calcium [Mass/Vol] 9.2 mg/dL Normal 8.4-10.2 [facility] Comment on above: Performed By: #### C MP, LIPID #### [facility] [address] [address] [address] Harris Meier Chloride [Moles/Vol] 104 mmol/L Normal 98-107 [facility] Comment on above: Performed By: #### C MP, LIPID #### [facility] [address] [address] [address] Harris Meier CO2 [Moles/Vol] 28.1 mmol/L Normal 22.0-30.0 [facility] Comment on above: Performed By: #### C MP, LIPID #### [facility] [address] [address] [address] Harris Meier Creatinine [Mass/Vol] 0.87 mg/dL Normal 0.66-1.25 [facility] Comment on above: Performed By: #### C MP, LIPID #### [facility] [address] [address] [address] Harris Meier EGFR-AF [place] CITIZ[place] >60 Normal >=60 [facility] Comment on above: Performed By: #### C MP, LIPID #### [facility] [address] [address] [address] Harris Meier EGFR-NON AF [place]IZ[place] >60 Normal >=60 [facility] Comment on above: Performed By: #### C MP, LIPID #### [facility] [address] [address] [address] Harris Meier Globulin (S) [Mass/Vol] 3.3 g/dL Normal [facility] Comment on above: Performed By: #### C MP, LIPID #### [facility] [address] [address] [address] Harris Meier Glucose [Mass/Vol] 96 mg/dL Normal 74-106 [facility] Comment on above: Performed By: #### C MP, LIPID #### [facility] [address] [address] [address] Harris Meier Potassium [Moles/Vol] 3.6 mmol/L Normal 3.4-5.0 [facility] Comment on above: Performed By: #### C MP, LIPID #### [facility] [address] [address] [address] Harris Meier Protein [Mass/Vol] 7.5 g/dL Normal 6.1-8.2 [facility] Comment on above: Performed By: #### C MP, LIPID #### [facility] [address] [address] [address] Harris Meier Sodium [Moles/Vol] 139 mmol/L Normal 137-145 [facility] Comment on above: Performed By: #### C MP, LIPID #### [facility] [address] [place], [place] [address] Dr. Harris Meier Urea nitrogen [Mass/Vol] 11.0 mg/dL Normal 9.0-20.0 [facility] Comment on above: Performed By: #### C MP, LIPID #### [facility] [address] [place], [place] [address] Dr. Harris Meier Urea nitrogen/Creatinine [Mass ratio] 12.6 mg/mg Normal [facility] Comment on above: Performed By: #### C MP, LIPID #### [facility] [address] [place], [place] [address] Dr. Harris Meier Coding Summaryon 01-30-2020 Coding Summary CODING DATE: 01/30/2020 [facility] STATUS: Home PAYOR: [employer] DESCRIPTION 5113 Level 3 Musculoskeletal Procedures ADMIT DX: REASON FOR VISIT DX: M70.42 Prepatellar bursitis, left knee FINAL DX: PRINCIPAL: M70.42 Prepatellar bursitis, left knee SECONDARY: I10 Essential (primary) hypertension PYMT PROC APC STAT DESCRIPTION DOCTOR NAME DATE [id number] J1 Excision, prepatellar Murray Garrett And 01/24/2020 [...] Wilkinson Revised Date Saved: 01/30/2020 09:58 am [facility] Lab - AP Resultson 0 Lab - AP Results [id number] [id number] [facility] Pathology Sendout Teston Pathology Send Out. See Report [facility] Comment on above: Order Comment: Infec jimbo left knee bursa pt on bactrim for 5 days prior Performed By: #### 2 [id number] ####[facility] (DEFAULT)[address] [place] [address] History and Physicalon 01-27 History and Physical [id number] [place] [address] Provider Orderson 01-28-2020 Provider Orders [id number]#1.[address] [place] [address] C Fluidon 01-27-2020 C Fluid pt on bactrim for 5 days prior No growth at 3 days. [facility] Comment on above: Performed By: #### 1 [id number] ####[facility] (DEFAULT)[address] [place] [address] Consent Formson 01-27-2020 Consent Forms [id number] [place] [address] Discharge Instructionson Discharge Instructions [id number] [place] [address] Anesthesia Noteon 01-24-2020 Anesthesia Note Patient: JACQUELINE [...] on: 01/24/2020 13:25 EDT] Leonides Rees MD [facility] Anesthesia Note Patient: JACQUELINE MENDOZA MRN: Age: [...] mg oral tablet 1 tab(s), PO, BID [place] 5 mg-325 mg oral tablet 1 tab(s), PRN, PO, q4hr Problem list (past medical history): All Problems Hypertension / SNOMED CT 0397078160 / Confirmed Sleep apnea / SNOMED CT 606696741 / Confirmed Histories Family History: No family history items have been selected or recorded. Procedure history: Hydronephrosis (15182367). Social History Electronic Cigarette/Vaping Assessment Electronic Cigarette [...] Oriented. Review / Management Laboratory Results Plan [place] [employer]esthesiologists#(ASA ) physical status classification: Class III, E. Anesthetic Preoperative Plan Anesthesia: General. . Anesthetic plan, risks, benefits, and alternatives discussed with the patient and/or family. Patient verbalized understanding. Informed consent was given. Anesthetic technique: General anesthesia. [Electronically Signed on: 01/24/2020 12:22 EDT] Leonides Rees MD [Verified on: 01/24/2020 12:22 EDT] Leonides Rees MD [facility] C Anaerobicon 01-24-2020 C Anaerobic pt on bactrim for 5 days prior No anaerobic growth at 7 Days Rare White Blood Cells No organisms seen. [facility] Comment on above: Performed By: #### 7 [id number] #### [facility] (DEFAULT) [address] [place] [address] Inpatient Patient Summaryon 01-24-2020 Inpatient Patient Summary [id number] Patient Discharge Instructions Name: KELLY STEFFEN Krishnamurthy : 1980 Patient Address: [address] [place] [address] Primary Care Provider: Name: Gay Ronquillo MD After you are discharged if you find you have any questions, please, call [phone] ext [phone] to speak to a nurse. Discharge Diagnosis: Prepatellar abscess; Prepatellar bursitis Prescription Information: If you have been given a prescription for narcotics, seek immediate medical attention if you have any difficulty breathing or any sudden status changes such as confusion and sleepiness. If you or anyone you know is experiencing suicidal thoughts, mental health, alcohol and/or drug addiction problems; contact the [facility] 15/05 Crisis Hotline -Text 4HUOC xh 441652. If you received any narcotics, sedation, or [...] business decisions or sign any legal documents [facility] [place] would like to thank you for allowing us to assist you with your healthcare needs. The following includes patient education materials and information regarding your injury/illness. STEFFEN MENDOZA has been given the following list of follow-up instructions, prescriptions, and patient education materials: Follow-up Instructions With: Address: When: Murray Garrett [address] [facility], [address] [place], [place] [address] Business (2) In 4 days 01/28/2020 Comments: as per d/c appt card With: Address: When: Gay Ronquillo [address] [place] [address], [place] [address] Business (1) Medications During the course of your visit, your medication list was updated with the most current information. The details of those changes are reflected below: New Medications Printed Prescriptions acetaminophen-hydrocod one ([place] 5 mg-325 mg oral tablet) 1 tab(s) [...] you can keep with you. acetaminophen-hydrocod one ([place] 5 mg-325 mg oral tablet) 1 tab(s) [...] including vitamins, herbs, eye drops, creams, and ecyd-wcc-xpevogi medicines. ? Any problems you or family [...] 02/23/2015 Document Revised: 08/31/2017 Document Reviewed: 08/31/2017 [employer] Interactive Patient Education ? 2019 [employer] Viruses or Bacteria What?s got you [...] for Disease Control and Prevention June 2014 [facility] MAGR Intraoperative Recordon 01-24-2020 [facility] Intraoperative Record [facility] Intra-Op Record Summary Primary Physician: Murray Garrett DO Finalized Date/Time: 01/24/20 14:46:59 Pt. Name: STEFFEN MENDOZA/Sex: 1980 MALE Med Rec #: [id number] Physician: Murray Garrett DO Financial #: [id number] Pt. Type: D Room/Bed: / Admit/Disch: 01/24/20 [...] Role Performed Surgeon - Primary Anesthesiologist of Fabrication Inspector Record Time In 01/24/20 12:20:00 04/03/20 12:20:00 01/24/20 12:20:00 Time Out 01/24/20 13:14:00 01/24/20 13:14:00 01/24/20 13:14:00 Procedure Incision and Drainage Incision and Drainage Incision and Drainage Last Modified By: Adriane Jorgensen RN, Stephanie RN Sauer, Stephanie RN 01/24/20 13:47:57 01/24/20 13:47:57 01/24/20 13:47:57 Entry 4 Entry 5 Case Attendee Alphonso Christopher CUTTER AND EDGE TRIMMER, Geovanna Clifton C[employer]TER [employer] EDGE TRIMMER Role Performed Meat Cutter Scrub Personnel Time In 01/24/20 12:20:00 01/24/20 [...] procedure: Last Modified By: Yoselin Piña RN 04/03/20 14:46:57 Post-Care Text: O.760 Patient receives consistent [...] Verification Final Counts Items Included in Sponges, Sharps Final Count Status Correct Final Count Final [...] Unfinalizing 01/24/20 14:46 MHBLONG Modify Pick List [facility] MAGR PACU Recordon 0 MAGR PACU Record [facility]R PACU Record Summary Primary Physician: Murray Garrett DO Finalized Date/Time: 01/24/20 14:39:07 Pt. Name: STEFFEN MENDOZA/Sex: 1980 MALE Med Rec #: [id number] Physician: Murray Garrett DO Financial #: [id number] Pt. Type: D Room/Bed: / Admit/Disch: 01/24/20 09:57:00 - Institution: PACU Case Times MAGR Entry 1 In PACU I 01/24/20 13:17:00 Discharge from PACU 01/24/20 13:38:00 I Last Modified By: Yasemin Montanez RN 01/24/20 13:38:53 Finalized By: Yasemin Montanez RN Document Signatures Signed By: Yasemin Montanez RN 01/24/20 14:39 [facility] MAGR Postoperative Recordon 01-24-2020 MAGR Postoperative Record MAGR Phase II Record Summary Primary Physician: Murray Garrett DO Finalized Date/Time: 01/24/20 14:44:10 Pt. Name: STEFFEN MENDOZA/Sex: 1980 MALE Med Rec #: [id number] Physician: Murray Garrett DO Financial #: [id number] Pt. Type: D Room/Bed: / Admit/Disch: 01/24/20 [...] Signed By: Yasemin Montanez RN 01/24/20 14:44 [facility] MAGR Preoperative Recordon 0 01-24-2020 MAGR Preoperative Record MAGR Pre-Op Record Summary Primary Physician: Murray Garrett DO Finalized Date/Time: 01/24/20 14:39:41 Pt. Name: STEFFEN MENDOZA Raghu /Sex: 1980 MALE Med Rec #: [id number] Physician: Murray Garrett DO Financial #: [id number] Pt. Type: D Room/Bed: / Admit/Disch: 01/24/20 [...] Signed By: Yasemin Montanez RN 01/24/20 14:39 [facility] Operative Report - Surgeon/P florina 01-24-2020 Operative [...] then thoroughly irrigated with a mixture of [place] dine and saline exploring all around the [...] on: 01/24/2020 13:19 EDT] Murray Garrett DO [facility] Patient Handouton 01-24-2020 Patient Handout Infectious Disease [...] including vitamins, herbs, eye drops, creams, and sheg-ggd-xvwnerq medicines. ? Any problems you or family [...] 02/23/2015 Document Revised: 08/31/2017 Document Reviewed: 08/31/2017 Exam18 Interactive Patient Education ? 2019 [employer]. [facility] Vital Signs Date Time Vital Sign Value Performing Clinician Facility 06-27-2025 08:28-0400 Body height 182.88 cm Gay Ronquillo MD Work Phone: [facility] 06-27-2025 08:28-0400 Body mass index (BMI) [Ratio] 43.2 kg/m2 Gay Ronquillo MD Work Phone: [facility] 06-27-2025 08:28-0400 Body weight 144.69 kg Gay Ronquillo MD Work Phone: [phone] [place] [address] 06-27-2025 08:28-0400 Diastolic blood pressure 78 mm[Hg] Gay Ronquillo MD Work Phone: 3([phone] [place] [address] 06-27-2025 08:28-0400 Heart rate 57 /min Gay Ronquillo MD Work Phone: [facility] 06-27-2025 08:28-0400 Systolic blood pressure 120 mm[Hg] Gay Ronquillo MD Work Phone: [facility] 05-28-2025 09:34-0400 Body height 182.88 cm Gay Ronquillo MD Work Phone: [facility] 05-28-2025 09:34-0400 Body mass index (BMI) [Ratio] 43.5 kg/m2 Gay Ronquillo MD Work Phone: [facility] 05-28-2025 09:34-0400 Body weight 145.6 kg Gay Ronquillo MD Work Phone: [facility] 05-28-2025 09:34-0400 Diastolic blood pressure 82 mm[Hg] Gay Ronquillo MD Work Phone: [facility] 05-28-2025 09:34-0400 Heart rate 82 /min Gay Ronquillo MD Work Phone: [facility] 05-28-2025 09:34-0400 Respiratory rate 16 /min Gay Ronquillo MD Work Phone: [facility] 05-28-2025 09:34-0400 SaO2% (BldA) [Mass fraction] 96 % Gay Ronquillo MD Work Phone: [facility] 05-28-2025 09:34-0400 Systolic blood pressure 139 mm[Hg] Gay Ronquillo MD Work Phone: [facility] 11-20-2023 08:45-0500 Body height 182.88 cm Gay Ronquillo Other [facility] [employer] Other 11-20-2023 08:45-0500 Body mass index (BMI) [Ratio] 43.18 kg/m2 Gay Ronquillo Other [employer] Other 11-20-2023 08:45-0500 Body weight 144.43 kg Gay Ronquillo Other [employer] Other 11-20-2023 08:45-0500 Diastolic blood pressure 77 mm[Hg] Gay Ronquillo Other [employer] Other 11-20-2023 08:45-0500 Systolic blood pressure 119 mm[Hg] Gay Ronquillo Other [employer] Other 06-23-2023 10:00-0400 Body height 182.88 cm Gay Ronquillo Other [employer] Other 06-23-2023 10:00-0400 Body mass index (BMI) [Ratio] 43.8 kg/m2 Gay Ronquillo Other [employer] Other 06-23-2023 10:00-0400 Body weight 146.51 kg Gay Ronquillo Other [employer] Other 06-23-2023 10:00-0400 Diastolic blood pressure 81 mm[Hg] Gay Ronquillo Other [employer] Other 06-23-2023 10:00-0400 Systolic blood pressure 126 mm[Hg] Gay Ronquillo Other [employer] Other Encounters Encounter Date Encounter Type Care Provider Facility Start: 06-27-2025 End: 06-27-2025 ambulatory Gay Ronquillo MD Work Phone: [facility] Work Phone: Start: 06-27-2025 End: 06-27-2025 Patient encounter procedure Gay Ronquillo MD -[facility] Work Phone: Start: 06-27-2025 End: 06-27-2025 Patient encounter status Gay Ronquillo MD [facility] Start: 05-28-2025 End: 05-28-2025 ambulatory Gay Ronquillo MD Work Phone: [facility] Work Phone: Start: 05-28-2025 End: 05-28-2025 Patient encounter procedure Dayana Pagan DO -[facility] Work Phone: Start: 11-20-2023 End: 11-20-2023 ambulatory Gay Ronquillo Other [employer] Other Start: 11-20-2023 Office outpatient vi sit 25 minutes Gay Ronquillo [facility] Start: 11-20-2023 Telephone encounter Gay Ronquillo [facility] Start: 11-15-2023 ambulatory [facility] Start: 06-23-2023 End: 06-23-2023 ambulatory Gay Ronquillo Other [employer] Other Start: 06-23-2023 Encounter for genera l adult medical examination without abnormal findings Gay Ronquillo [facility] Start: 06-23-2023 Periodic preventive med est patient 40-64yrs Gay Ronquillo [facility] Start: 07-19-2021 End: 07-20-2021 ambulatory SHAIKH YAJAIRA Facility:[facility] Start: 07-14-2021 End: 07-15-2021 ambulatory SHAIKH AUBREYWAD Facility:[facility] Plan of Treatment Date Care Activity Detail Author Comprehensive metabo lic 1999 panel - Serum or Plasma [facility] enter [facility] Payers Date Payer Category Payer Unknown [id number] 1980 Unknown [id number] 1957 Unknown [id number] [facility] [id number] [id number] Social History Date Type Detail Facility Sex Assigned At [employer] Other Start: 05-28-2025 Tobacco smoking stat [facility] Never smoked tobacco (finding) [facility] Sex Male (finding) [facility] Start: 1980 Sex Assigned At Male F [facility] Evaluation note 05-28-2025 Note Date & Type Note Facility 05-28-2025 Evaluation note Diagnosis Onset Date Resolution Hypersomnia acute May 28, 2 025 9:32am Obesity acute May 28 9:32am DAVID (obstructive sleep apnea) acute May 28, 2025 9:32am Snoring acute May 28 9:32am Essential hypertension acute Se pt2024 8:24am DAVID (obstructive sleep apnea) acute June 27, 2 025 8:24am DAVID on CPAP acute June 8:24am Wellness examination acute Sept emb2024 8:24am [facility] Work Phone: Evaluation note 11-20-2023 Note Date & Type Note Facility 11-20-2023 Evaluation note Encounter Date Diagnosis Assessment Notes Oct, SBO (small bowel obstruction) (ICD-10 - K56.609) Reviewed notes and CT. No known cause of bowel obstruction. Reviewed [place] small bowel. Followup w Dr. Anne cao Oct, Congenital hydroureter (ICD-10 - Q62.39) Referral to [facility] Oct, Essential hypertension (ICD-10 - I10) Continue present med [employer] Other Evaluation note 06-23-2023 Note Date & [...] labs at work and they were normal. [employer] Other Evaluation note Note Date & Type Note Facility Evaluation note No Information [employer] Other Evaluation note Note Date & Type Note Facility Evaluation note No assessment information availa [facility] [employer] Work Phone: History general Narrative - Reported Note Date & Type Note Facility History general Narrative - Reported Type Medical History Elevated liver enzymes Medical History Essential hypertension Surgical History L knee bursectomy 2019 Surgical History Kidney reconstructio n ( blocked ureter) age 6 Hospitalization History see surgical hx [employer] Other History general Narrative - Reported Note Date & Type Note Facility History general Narrative - Reported Type Medical History Elevated liver enzymes Medical History Essential hypertension Surgical History L knee bursectomy 2019 Surgical History Kidney reconstructio n ( blocked ureter) age 6 Hospitalization History see surgical hx Hospitalization History [facility] 10/2023 [employer] Other Reason for referral (narrative) Note Date & Type Note Facility Reason for referral (narrative) No reason for referral information available [facility] [employer] Work Phone: Summary Purpose Family History No Family History Records FoundNo Family History Records FoundNo Family History Records Found Advance Directives Advance Directive Response Recorded Date/ Time Advance Directives No May 28 025 9:31am Hospital Course Note [facility] SURGERY Clinical Discharge Summary PERSON INFORMATION Name STEFFEN MENDOZA Age 39 Years 1980 Sex MALE Language Macedonian PCP Ximena TORREZ, Gay Galvan Marital Status Med Service Ambulatory Surgery Acct# Arrival 01/24/2020 09:57:00 Visit Reason IA ND LEFT KNEE WITH BURSECTOMY Acuity LOS 000 24:25 Address: [address] [place] [id number] Comment: PROVIDER INFORMATION VITALS INFORMATION Vital Sign Triage Latest Temp Oral Temp Temporal Temp Intravascular Temp Axillary Temp Rectal 02 Sat 97 % 96 % Respiratory Rate Peripheral Pulse Rate Apical Heart Rate Blood Pressure / 67 mmHg / 67 mmHg Comment: MEDICAL INFORMATION Allergy Info: Ceclor; penicillin Prescriptions Given: acetaminophen-hydrocodone ([place] 5 mg-325 mg oral tablet) 1 tab(s) [...] this practice. CT and hospital notes from [place] are scanned in. Diagnosis 1 Congenital hydrouret er (Q62.39) Referral Organization [facility] silvia Referring Provider First Name Gay Referring Provider Last Name Ximena Referring Provider Specialty [facility] Referred Organization [facility] Referred Provider Devendra Pineda Referred Address [address] [place], [place],[address] Referred Provider Specialty Urology Referral Priority Routine Chief Complaint and Reason for Visit Chief Complaint Admit Date Wellness June 27, 2025 8:24am Reason for Visit Admit Date Hypersomnia May 28, 2025 9:3 2am Obesity May 28, 2025 9:3 2am DAVID (obstructive sleep apnea) May 9:32am Snoring May 28, 2025 9:3 2am Essential hypertension June 27 8:24am DAVID (obstructive sleep apnea) June 27, 2025 8:24am DAVID on CPAP June 27, 2025 8:24am Wellness examination June 27, 2025 8:24am Additional Source Comments (unrecognized sect ion and content) No Status Records FoundNo Status Records FoundNo Status Records Found INFORMATION SOURCE (unrecogn ized section and content) DATE CREATED AUTHOR 02/11/2020 [facility] DATE CREATED AUTHOR AUTHOR'S ORGANIZ ATION 07/30/2021 [facility] DATE CREATED AUTHOR AUTHOR'S ORGANIZ ATION 11/18/2023 [facility] REASON FOR VISIT (unrecogniz ed section and content) [facility] Care Teams (unrecognized sec tion and content) Team Status: Active Member Role Status Dates Gay Ronquillo MD Primary Care Provider Active Team Status: Inactive Member Role Status Dates Gay Ronquillo MD Primary Care Provider Active Start: May 28, 2025 End: May 28, 2025 Dayana Pagan DO Attending Provider Active Sta rt: May 28, 2025 End: May 28, 2025 Team Status: Inactive Member Role Status Dates Gay Ronquillo MD Primary Care Provider Active Start: June 27, 2025 End: June 27, 2025 Gay Ronquillo MD Attending Provider Active St art: June 27, 2025 End: June 27, 2025 Goals (unrecognized section and content) Goals may be documented in a n alternate section FOR RECORDS PERTAINING TO PATIENTS WHO ARE [...] BE BASED ON THE PRIMARY CLINICAL RECORDS. [employer] provides no warranty or guarantee of the accuracy or completeness of information in this document.
[2025-06-27 09:52] LABS: Hematocrit 42.8 % (42.0-54.0); Hemoglobin 14.4 g/dL (14.0-18.0); Immature Granulocytes Abs Auto 0.02 10^3/uL (0.00-0.03); Immature Granulocytes Pct Auto 0.2 % (0.0-0.5); Lymphocytes Absolute Auto 2.7 10^3/uL (1.2-3.8); Mean Corpuscular HGB Conc 33.6 g/dL (29.9-35.2); Mean Corpuscular Hemoglobin 29.9 pg (25.9-34.0); Mean Corpuscular Volume 89.0 fL (80.0-94.0); Platelet Count 301 10^3/uL (150-450); Red Blood Count 4.81 10^6/uL (4.70-6.10); White Blood Count 8.1 10^3/uL (4.0-11.0)
[2025-06-27 10:09] LABS: Alanine Aminotransferase 91 U/L (16-63); Albumin Globulin Ratio 1.2; Albumin Level 4.0 g/dL (3.4-5.0); Alkaline Phosphatase 63 U/L (46-116); Anion Gap 15.9; Aspartate Amino Transferase 38 U/L (15-37); Blood Urea Nitrogen 13.0 mg/dL (7.0-18.0); Calcium 9.2 mg/dL (8.5-10.1); Carbon Dioxide 26.1 mmol/L (21.0-32.0); Chloride 103 mmol/L (98-107); Cholesterol 158 mg/dL (<=200); Estimated GFR (African America >60 (>=60 mL/min/1.73m^2); Estimated GFR (Non-African Ame >60 (>=60 mL/min/1.73m^2); Globulin 3.3 g/dL; Glucose 115 mg/dL (74-106); HDL Cholesterol 33 mg/dL (40-60); Potassium 4.0 mmol/L (3.5-5.1); Sodium 141 mmol/L (136-145); Total Protein 7.3 g/dL (6.4-8.2); Triglycerides 176 mg/dL (<=150); VLDL CHOLESTEROL 35.2 mg/dL
== END 2025-06-27 09:05 | disposition home or self-care (01) ==
LOC: LAB 09:05
PROVIDERS: PCP Family Medicine; Visit Provider Family Medicine
DX: Z00.00 Encounter for general adult medical examination without abnormal findings (principal); I10 Essential (primary) hypertension; G47.33 Obstructive sleep apnea (adult) (pediatric); E66.813 Obesity, class 3; Z68.41 Body mass index [BMI] 40.0-44.9, adult; E78.2 Mixed hyperlipidemia
CPT/HCPCS: 36415; 80053; 80061; 82043; 82570; 85025